=== PATIENT | female | born 1995 | race Caucasian/White ===

== ENCOUNTER 2020-01-16 13:16 | Emergency (ER) | payer OTHER, BC, SELFPAY ==
--- NOTE | ~2020-01-16 | XR_ITS ---
EXAMINATION: XR hand RT min 3V DATE: 01/16/2020 13:59 INDICATION: Right thumb injury. TECHNIQUE: 3 views of right hand were obtained. COMPARISON: None. FINDINGS: Bone alignment is normal. No fracture. Joint spaces are well maintained. IMPRESSION: 1. Normal right hand. Reviewed, dictated and finalized at location A. IMPRESSION: 1. Normal right hand.
[2020-01-16 13:44] VITALS: BP 108/66; PULSE 95; RESP 14; TEMP 36.6; O2SAT 99
--- NOTE | 2020-01-16 14:12 | ED.GENADULT ---
HPI - General Adult General Chief complaint: Extremity Injury, Upper Stated complaint: smashed thumb in card door Time Seen by Provider: 01/16/20 14:12 Source: patient and RN notes reviewed Mode of arrival: ambulatory Limitations: no limitations History of Present Illness HPI narrative: This is a 24 years old female presented to the office for evaluations of right thumb injury on Sunday. She accidentally jammed her right thumb into the car door. Complains of pain immediately and worse for the last couple day. Denies any other injury. She is right-hand dominant. Related Data Home Medications Medication Instructions Recorded Confirmed No Home Medications 01/16/20 01/16/20 Allergies Allergy/AdvReac Type Severity Reaction Status Date / Time No Known Allergies Allergy Verified 01/16/20 13:57 Review of Systems Review of Systems: Narrative: CONSTITUTIONAL: Denies fever or feeling ill CARDIOVASCULAR: Denies chest sore RESPIRATORY: Denies dyspnea GASTROINTESTINAL: Denies nausea, vomiting SKIN: Denies rash/lesions MUSCULOSKELETAL: Reports right thumb pain with dark color finger nail NEUROLOGIC: Denies numbness PMFSH Comments At time of signature, I agree with nursing past medical, surgical, social and family history. There is no relevant family history pertinent to the presenting complaint. Exam Narrative: Exam Narrative: GENERAL: This is a well-nourished, well-developed patient, in no apparent distress. NEURO: awake, alert, and oriented to person, place and time. There were no obvious focal neurologic abnormalities. Steady gait EXTREMITIES: Normal range of motion. Right thumb noted subungual hematoma. Rufus Coma Scale Eye Opening: Spontaneous 4 [place] Coma Scale Motor: Obeys Commands 6 Rufus Coma Scale Verbal: Oriented 5 Course Vital Signs Vital signs: Vital Signs Temperature 97.8 F 01/16/20 13:44 Pulse Rate 95 01/16/20 13:44 Respiratory Rate 14 01/16/20 13:44 Blood Pressure 108/66 01/16/20 13:44 Pulse Oximetry 99 01/16/20 13:44 Temperature 97.8 F 01/16/20 13:44 Pulse Rate 95 01/16/20 13:44 Respiratory Rate 14 01/16/20 13:44 Blood Pressure 108/66 01/16/20 13:44 Pulse Oximetry 99 01/16/20 13:44 Procedures Nail Trephination Nail Trephination #1: Nail Trephination Date: 01/16/20 Nail Trephination Time: 14:16 Time out: No Location (finger): right and thumb Sterile prep: betadine Method of drainage: needle and nail cautery Procedure successful: Yes Patient tolerated procedure: well Complications: pain Nail Trephination Comment: patient was screaming in pain during procedure; however she reports feeling better after I stopped squeezing her thumb. Wound care instruction provided. Medical Decision Making MDM Narrative Medical decision making narrative: Discharge instructions reviewed with patient, as well as provided in writing per nursing staff. The instructions also include specific and strict return/GO TO THE ER as well as f/u information. All questions have been answered, and the patient deny any further questions with discharge and discharge plan. Differential Diagnosis Differential Diagnosis: finger fracture Vital Signs Vital Signs: Vital Signs Temperature 97.8 F 01/16/20 13:44 Pulse Rate 95 01/16/20 13:44 Respiratory Rate 14 01/16/20 13:44 Blood Pressure 108/66 01/16/20 13:44 Pulse Oximetry 99 01/16/20 13:44 Temperature 97.8 F 01/16/20 13:44 Pulse Rate 95 01/16/20 13:44 Respiratory Rate 14 01/16/20 13:44 Blood Pressure 108/66 01/16/20 13:44 Pulse Oximetry 99 01/16/20 13:44 Imaging Data Attestation: I personally reviewed and interpreted this imaging study as follows: Radiologist's impression: EXAMINATION: XR hand RT min 3V DATE: 01/16/2020 13:59 INDICATION: Right thumb injury. TECHNIQUE: 3 views of right hand were obtained. COMPARISO
== END 2020-01-16 14:38 | disposition home or self-care (01) ==
PROVIDERS: Emergency Provider Nurse Practitioner
DX: S60.10XA Contusion of unspecified finger with damage to nail, initial encounter (principal); W23.1XXA Caught, crushed, jammed, or pinched between stationary objects, initial encounter
CPT/HCPCS: 11740; 73130; 99203; G0463

== ENCOUNTER 2020-01-18 15:16 | Emergency (ER) | payer OTHER, BC, SELFPAY ==
[2020-01-18 15:22] VITALS: BP 111/64; PULSE 110; RESP 14; TEMP 37.1; O2SAT 99
--- NOTE | 2020-01-18 15:38 | ED.GENADULT ---
HPI - General Adult General Chief complaint: Upper Respiratory Infection Stated complaint: ears throat and headache Source: patient and RN notes reviewed Mode of arrival: ambulatory Limitations: no limitations History of Present Illness HPI narrative: 24-year-old female presents with complaints of sore throat, intermittent chills and right ear pressure for 1 day. No treatment. No high fevers, drooling, neck or throat swelling. Pain is bilateral. Hurts to swallow. Exacerbation factors consist of eating and drinking. No rhinorrhea or nasal congestion. No voice change. Denies dyspnea, difficulty swallowing, jaw pain, dental pain, facial pain, foreign body sensation, and rash. Remains active. Caryn denies being , LMP 12/28/19. The patient reports she have not been diagnosed with COVID-19. The patient reports she is not waiting for the results of a COVID-19 lab test. The patient reports she do not have fever, weakness, fatigue, myalgia, or facial swelling. The patient reports she do not have a new or worsening cough or shortness of breath. Denies chest pain. The patient reports she do not have any rhinorrhea, congestion, nausea, vomiting, abdominal pain, and diarrhea. Tolerating po intake well. Denies recent traveling. Denies concerns for COVID-19 or exposures been home since [id number] order except for essential household needs and return home. At this time, patient is not suspected of having COVID-19. Some parts of this dictation were generated by voice recognition software and may contain typographical and/or grammatical inaccuracies. Related Data Allergies Allergy/AdvReac Type Severity Reaction Status Date / Time No Known Allergies Allergy Verified 01/18/20 15:30 Review of Systems Review of Systems: Narrative: CONSTITUTIONAL: Denies fever, sweats. Complains of intermittent chills. EYES: Denies visual changes, redness, discharge. ENT: Denies rhinorrhea, congestion, otalgia. Complains of sore throat, intermittent RT ear pressure . CARDIOVASCULAR: Denies chest pain, palpitations, edema. RESPIRATORY: Denies dyspnea, wheezing, cough. GASTROINTESTINAL: Denies abdominal pain, nausea, vomiting, diarrhea. GENITOURINARY: Denies dysuria, hematuria, abnormal discharge. SKIN: Denies rash or itching. MUSCULOSKELETAL: Denies acute back pain, joint pain, or myalgia. NEUROLOGIC: Denies numbness or focal weakness. PSYCHIATRIC: Denies anxiety or depression. All systems reviewed & are unremarkable except as noted in HPI and below. [facility] Past Medical History Medical History (Updated 01/18/20 @ 15:41 by YIMI San) Anxiety Depression Elbow fracture, left Surgical History Surgical History (Updated 01/18/20 @ 18:35 by YIMI San) History of dental surgery Family History Family History (Updated 01/18/20 @ 18:37 by YIMI San) Father Alive and well Mother Alive and well Grandparent Heart disease Grandparent Hypertension Heart disease Sibling Asthma Social History Social History (Updated 01/18/20 @ 18:39 by YIMI San) Smoking status: Former smoker Tobacco type: cigarettes Second hand tobacco smoke exposure: No Smoking end date: 08/13/17 Additional smoking assessment comments: Smoked for 1.5 years Alcohol intake: current Substance use: current Substance use type: marijuana Living arrangements: with family Occupation/Education: occupation Gender identity (if verbalized by the patient): Female Comments At time of signature, agree with nurse past medical, surgical, social, and family history. There is no relevant family history pertinent to the presenting complaint. Exam Narrative: Exam Narrative: GENERAL: This is a well-nourished, well-developed patient, in no apparent distress. Speaks in full sentences without deficits and ambulates with steady gait without dyspnea. HEAD: normocephalic, atraumatic. EYES:
== END 2020-01-18 16:01 | disposition home or self-care (01) ==
PROVIDERS: Emergency Provider Nurse Practitioner Family
DX: J02.0 Streptococcal pharyngitis (principal); F17.210 Nicotine dependence, cigarettes, uncomplicated
CPT/HCPCS: 87804; 87880; 99213; G0463

== ENCOUNTER 2020-07-17 13:21 | Emergency (ER) | payer OTHER, SELFPAY ==
[2020-07-17 13:25] VITALS: BP 107/75; PULSE 105; RESP 18; TEMP 36.8; O2SAT 99
--- NOTE | 2020-07-17 13:45 | ED.URI ---
HPI - URI/Sore Throat General Chief Complaint: Upper Respiratory Infection Stated Complaint: sore throat Time Seen by Provider: 07/17/20 13:45 Source: patient Mode of arrival: ambulatory Limitations: no limitations History of Present Illness HPI Narrative: Caryn Lopez is a 25 yo with PMH of pre=-eclempsia, who comes to express care complaining of severe soreness of throat and difficulty swallowing that has worsened over the last 7 days. She states that today she cannot really swallow of fluids. An upper respiratory infection about 3 weeks ago had a negative Covid test 2 weeks ago, she is also 7 weeks Related Data Allergies Allergy/AdvReac Type Severity Reaction Status Date / Time No Known Allergies Allergy Verified 07/17/20 13:42 Review of Systems Review of Systems: Narrative: CONSTITUTIONAL: Denies fever, chills, sweats. EYES: Denies visual changes, redness, discharge. ENT: Denies rhinorrhea, no congestion, has sore throat, no otalgia. CARDIOVASCULAR: Denies chest pain, palpitations, edema. RESPIRATORY: Denies dyspnea, wheezing, cough GASTROINTESTINAL: Denies abdominal pain, nausea, vomiting, diarrhea. GENITOURINARY: Denies dysuria, hematuria, abnormal discharge SKIN: Denies rash or itching. NEUROLOGIC: Denies numbness, or focal weakness. PSYCHIATRIC: Denies anxiety or depression. [facility] Past Medical History Medical History Anxiety Depression Elbow fracture, left Surgical History Surgical History History of dental surgery Family History Family History Father Alive and well Mother Alive and well Grandparent Heart disease Grandparent Hypertension Heart disease Sibling Asthma Social History Social History (Updated 07/17/20 @ 13:48 by Ashlyn Smith CNP) Smoking status: Former smoker Tobacco type: cigarettes Second hand tobacco smoke exposure: No Smoking end date: 08/13/17 Additional smoking assessment comments: Smoked for 1.5 years Alcohol intake: former Substance use: former Substance use type: marijuana Gender identity (if verbalized by the patient): Female Comments At time of signature, I agree with nursing past medical, surgical, social and family history. There is no relevant family history pertinent to the presenting complaint. Exam Narrative: Exam Narrative: GENERAL: This is a well-nourished, well-developed patient, in mild distress. HEAD: normocephalic, atraumatic. EYES: PERRL. Sclera clear/white. Vision is grossly intact. EARS: External ears normal, auditory canals clear and without drainage, TMs normal without perforation. Hearing grossly intact. NOSE: External nose normal without nasal discharge, nares without redness, no rhinorrhea. THROAT: Mucous membranes moist, posterior pharynx erythema with bilateral 2+ tonsillar edema NECK: Neck supple, non-tender CARDIOVASCULAR: Tachycardic rate and rhythm without murmurs, gallops, or rubs. RESPIRATORY: Clear to auscultation. Breath sounds equal bilaterally. No wheezes, rales, or rhonchi. GASTROINTESTINAL: Abdomen soft, non-tender, SKIN: warm, intact with no suspicious lesions or rash, good texture and turgor. NEURO: awake, alert, and oriented to person, place and time. There were no obvious focal neurologic abnormalities. Steady gait EXTREMITIES: Normal range of motion. BACK: Nontender without deformity Course Course Emergency Course: Came to [facility] with sore throat Flu test and strep test run-positive for strep negative for flu Started on prednisone p.o. x4 days and penicillin V 500 mg 3 times daily x10 days Follow-up with primary care physician Vital Signs Vital signs: Vital Signs Temperature 98.2 F 07/17/20 13:25 Pulse Rate 105 H 07/17/20 13:25 Respiratory Rate 18 07/17/20 13:25 Blood Pressure 107/75
== END 2020-07-17 13:55 | disposition home or self-care (01) ==
PROVIDERS: Emergency Provider Nurse Practitioner
DX: O99.511 Diseases of the respiratory system complicating pregnancy, first trimester (principal); Z3A.01 Less than 8 weeks gestation of pregnancy; J02.0 Streptococcal pharyngitis; Z87.891 Personal history of nicotine dependence
CPT/HCPCS: 87804; 87880; 99213; G0463

== ENCOUNTER → 2020-08-11 12:46 | Outpatient (CLI) | payer OTHER, SELFPAY ==
--- NOTE | ~2020-08-11 | XR_ITS ---
XR chest 2V DATE: 08/11/2020 13:32 INDICATION: Mild exposure TECHNIQUE: PA and lateral views COMPARISON: None FINDINGS: Normal heart size. No hilar or mediastinal enlargement. No pulmonary infiltrate or consolid ation, pleural effusion or pulmonary vascular congestion or pneumothorax. Included skeletal structure s are unremarkable. IMPRESSION: Negative Reviewed, dictated and finalized at location A. [employer]ER IMPRESSION: Negative
== END ==
PROVIDERS: PCP Emergency Medicine; Visit Provider Emergency Medicine
DX: Z77.120 Contact with and (suspected) exposure to mold (toxic) (principal)
CPT/HCPCS: 71046

== ENCOUNTER 2021-01-20 12:57 | Emergency (ER) | payer OTHER, SELFPAY ==
--- NOTE | 2021-01-20 13:02 | ED.URI ---
HPI - URI/Sore Throat General Chief Complaint: Ear Stated Complaint: ear congestion and fatigued Time Seen by Provider: 01/20/21 13:02 Source: patient and RN notes reviewed History of Present Illness HPI Narrative: Patient is a 25-year-old female who presents the urgent care with complaints of bilateral ear pain. Patient states that she has had a cold since Sunday but has felt better over the last 24 hours however the ear pain has been consistent. Patient states that she has been taking DayQuil with some mild improvements of symptoms. Currently denies of any known fevers, nausea, vomiting, known exposure to Covid, strep or influenza. No other acute complaints. No acute distress noted. Patient aware of the plan of care. Some parts of this dictation were generated by voice recognition software and may contain typographical and/or grammatical inaccuracies. Related Data Home Medications Medication Instructions Recorded Confirmed No Home Medications 01/20/21 01/20/21 Allergies Allergy/AdvReac Type Severity Reaction Status Date / Time No Known Allergies Allergy Verified 01/20/21 13:06 Review of Systems Review of Systems: Narrative: CONSTITUTIONAL: Denies fever, chills, or sweats. EYES: Denies visual changes, redness, or discharge. ENT: Reports of bilateral otalgia CARDIOVASCULAR: Denies chest pain, palpitations, or edema. RESPIRATORY: Denies cough or dyspnea. GASTROINTESTINAL: Denies abdominal pain, nausea, vomiting, or diarrhea. GENITOURINARY: Denies dysuria or hematuria. SKIN: Denies rash or itching. MUSCULOSKELETAL: Denies back pain, joint pain, or myalgia. NEUROLOGIC: Denies headache, numbness, or weakness. All other systems reviewed are negative, except as documented in HPI. [facility] Past Medical History Medical History Anxiety Depression Elbow fracture, left Surgical History Surgical History History of dental surgery Family History Family History Father Alive and well Mother Alive and well Grandparent Heart disease Grandparent Hypertension Heart disease Sibling Asthma Social History Social History Smoking status: Former smoker Tobacco type: cigarettes Second hand tobacco smoke exposure: No Smoking end date: 08/13/17 Additional smoking assessment comments: Smoked for 1.5 years Alcohol intake: former Substance use: former Substance use type: marijuana Gender identity (if verbalized by the patient): Female Comments At the time of my signature, I reviewed and agree with the nursing past medical, surgical, social, and family history. There is no relevant family history pertinent to the patient complaint. Exam Narrative: Exam Narrative: GENERAL: This is a well-nourished, well-developed patient, in no apparent distress. HEAD: normocephalic, atraumatic. EYES: PERRL. Sclera clear/white. Vision is grossly intact. EARS: External ears normal, auditory canals clear and without drainage, mild fluid noted behind left TM without otitis. TMs normal without perforation. Hearing grossly intact. NOSE: External nose normal with no obvious nasal discharge, nares without redness, no rhinorrhea. THROAT: Mucous membranes moist, moderate erythema noted posterior oropharynx with mild bilateral tonsillar erythema without exudate or ulceration.(Patient reports that her tonsils are always large and she needs to have been removed, she is followed up with ENT) NECK: Neck supple, non-tender without lymphadenopathy CARDIOVASCULAR: Regular rate and rhythm without murmurs, gallops, or rubs. RESPIRATORY: Clear to auscultation. Breath sounds equal bilaterally. No wheezes, rales, or rhonchi. SKIN: warm, intact with no suspicious lesions or rash, good texture and turgor. NEURO: awake, alert, and
[2021-01-20 13:06] VITALS: BP 130/72; PULSE 98; RESP 14; TEMP 36.9; O2SAT 98
== END 2021-01-20 13:48 | disposition home or self-care (01) ==
PROVIDERS: Emergency Provider Nurse Practitioner Family; PCP Emergency Medicine
DX: J06.9 Acute upper respiratory infection, unspecified (principal); Z87.891 Personal history of nicotine dependence
CPT/HCPCS: 87081; 87880; 99213; G0463

== ENCOUNTER 2022-05-02 09:22 | Outpatient (CLI) | payer OTHER, SELFPAY | END 2022-05-02 09:23 | disposition home or self-care (01) | LOC: ANHSURGERY 09:32 | PROVIDERS: PCP Family Medicine; Visit Provider Obstetrics & Gynecology | DX: Z01.812 Encounter for preprocedural laboratory examination (principal); R10.2 Pelvic and perineal pain | CPT/HCPCS: 36415; 86850; 86900; 86901 ==

== ENCOUNTER 2022-05-05 00:37 | Day surgery (SDC) | payer OTHER, SELFPAY ==
[2022-04-27 14:24] VITALS: BMI 31.6
--- NOTE | 2022-04-27 14:31 | SUR.PREOP ---
Report to the Outpatient Waiting Room, entrance under the green pavilion located off [facility], at time 0600 on date 05/05/22. OR Time: 0730. Time changes happen often and if your time is changed the preop area will call you the afternoon before. - You and your visitor will be asked to self-screen and do not enter if you have any COVID symptoms. - Only one visitor and NO children visitors are allowed at this time. - The patient visitor is requested to leave or wait in car when not with patient due to restrictions. - A mask is required within the hospital. Patients may have clear liquids (water, carbonated beverages, clear teas, apple juice) until 3 hours prior to surgery with a maximum of 20 ounces. - No food from midnight until time of surgery NOTHING TO EAT OR DRINK AFTER MIDNIGHT - Infants may have breast milk until 4 hours before surgery, infant formula 6 hours prior to surgery. - Children will be allowed to drink immediately following surgery. If applicable, please bring a bottle or sippy cup to assist with drinking. Juice, water, soda, and popsicles are readily available. For infants on formula, please bring formula the day of surgery. Pacifiers are allowed. Take the following medications with a SIP of water the morning of surgery: NO MORNING MEDS Medications to discontinue per physician __HOLD VITAMINS AND SUPPLEMENTS FOR 3 DAYS____ Date to take last dose Please no make-up, nail gabonese, hairspray, perfume, deodorant, or body powder the day of surgery. No jewelry (including any body piercings) or valuables the day of surgery, leave them at home. Please take a shower or bath the night before, or the morning of, surgery with an antibacterial soap. Wear comfortable, loose fitting clothing. Children are encouraged to wear pajamas. - Jewelry must be removed prior to entering the operating room. Rings and piercings that are not removed may be cut off. - The hospital will not accept responsibility for valuables. - Please leave all valuables, including medications, at home the day of surgery. If you are going home after surgery, a licensed otr truck driver must drive you home. - NO public transportation without another adult. - We recommend that an adult stay with you for 24 hours following discharge. - We also recommend that you do not drive, make important decision, drink alcoholic beverages, or take any drugs that were not prescribed by your health care provider for at least 24 hours after your discharge time. For Pediatric surgeries, we recommend two adults accompany the child home (only one inside the building at this time). Follow any additional instructions given to you from your surgeon. If you or anyone in your household have experienced Covid symptoms in the past week, please notify your surgeon or the nurse liaison at the phone number below for possible testing. Telephone instructions given to _PATIENT__and asked if any additional questions and then verbalized understanding. Patient advised to call surgeon office or pre surgery nurse liaison [phone] if any additional questions.
--- NOTE | 2022-05-03 12:03 | PM.IMHP ---
H&P: HPI History of Present Illness Date/Time: 05/03/22 12:03 Chief Complaint: Pelvic pain Narrative: 27-year-old man in for diagnostic laparoscopy secondary to pelvic pain. Risks and benefits was aspiration bleeding, transfusion 3 bottles bladder ureters, or other internal received the [employer] handout entitled laparoscopy. She had all questions answered. She asked to proceed PMFSH Past Medical History Medical History Anxiety Depression Elbow fracture, left Surgical History Surgical History History of dental surgery Family History Family History Father Alive and well Mother Alive and well Grandparent Heart disease Grandparent Hypertension Heart disease Sibling Asthma Social History Social History Smoking status: Never smoker Tobacco type: cigarettes Second hand tobacco smoke exposure: No Smoking end date: 08/13/17 Additional smoking assessment comments: Smoked for 1.5 years Alcohol intake: current Alcohol use details: 2 DRINKS PER MONTH Substance use: former Substance use type: marijuana Gender identity (if verbalized by the patient): Female Spiritual care concerns: No Meds Home Medications and Allergies Home Medications Medication Instructions Recorded Confirmed Type multivitamin 1 tablet PO DAILY 04/27/22 04/27/22 History Allergies Allergy/AdvReac Type Severity Reaction Status Date / Time No Known Allergies Allergy Verified 01/20/21 13:06 Exam Const: General: cooperative, healthy appearing and comfortable Nutritional Appearance: average body habitus Orientation/consciousness: oriented to person, oriented to place and oriented to time Resp: Effort & Inspection: normal respiratory effort Cardio: Rate: regular rate Rhythm: regular rhythm Heart sounds: S1 normal heart sound present and S2 normal heart sound present GI: Inspection: normal to inspection : External Female Exam: normal external appearance Speculum Exam - Vagina: normal appearance of the vagina Speculum Exam - Cervix: normal appearance of the cervix Bimanual exam- vagina & uterus: uterine size normal and Uterine tenderness Bimanual Exam- Adnexa, other: tender Assessment and Plan Assessment and plan (1) Pelvic pain: Code(s): R10.2 - Pelvic and perineal pain Status: Acute Plan diagnostic laparoscopy
[2022-05-05] VITALS (11 sets, daily range): BP systolic 107–117; BP diastolic 58–81; PULSE 69–95; RESP 14–18; TEMP 36.3–36.6; O2SAT 95–100
--- NOTE | 2022-05-05 06:15 | WPDHPUPDATE1 ---
History and Physical Update Update Date/Time: 05/05/22 06:15 History and Physical has been reviewed, including an updated exam of the patient. There are NO changes in the patient's condition. Risks, benefits, and alternatives have been discussed and questions answered. Patient agrees to proceed with procedure.
[2022-05-05] MEDS: ACETAMINOPHEN 500 MG TABLET 1000 MG PO (06:33)
[2022-05-05] MEDS: KETOROLAC 15 MG/ML VIAL (*BKC) IV PUSH (06:34)
[2022-05-05] MEDS: LACTATED RINGERS 1,000 ML 30 ML IV CONT ×2 (06:34→08:15)
--- NOTE | 2022-05-05 06:56 | WPDANESEPPF ---
Anes - Initial Pre Proc Eval Procedure: Operation Date: 05/05/22 07:30 Proposed Procedures p Diagnostic Laparoscopy - Ian Singh MD Date/Time: 05/05/22 06:56 Surgeon: Ian Singh MD Pre Op Diagnosis: Pelvic Pain Patient Data Age: 27 Gender: F Height: 1.63 m Weight: 83.46 kg Allergies Allergy/AdvReac Type Severity Reaction Status Date / Time No Known Allergies Allergy Verified 01/20/21 13:06 Home Medications Medication Instructions Recorded Confirmed Type multivitamin 1 tablet PO DAILY 04/27/22 04/27/22 History escitalopram oxalate 5 mg tablet 5 mg PO DAILY 05/05/22 05/05/22 History hydrocodone 5 mg-acetaminophen 325 1 tablet PO Q4H PRN pain #30 tabs 05/05/22 Rx mg tablet lorazepam 0.5 mg tablet 0.5 mg PO DAILY PRN Anxiety 05/05/22 05/05/22 History Patient hx anesthesia problems: none Family hx anesthesia problems: none Results Review: All pre-operative results and documents have been reviewed as part of the pre-operative evaluation. [facility] Past Medical History Medical History Anxiety Depression Elbow fracture, left Surgical History Surgical History History of dental surgery Family History Family History Father Alive and well Mother Alive and well Grandparent Heart disease Grandparent Hypertension Heart disease Sibling Asthma Social History Social History Smoking status: Never smoker Tobacco type: cigarettes Second hand tobacco smoke exposure: No Smoking end date: 08/13/17 Additional smoking assessment comments: Smoked for 1.5 years Alcohol intake: current Alcohol use details: 2 DRINKS PER MONTH Substance use: former Substance use type: marijuana Living arrangements: alone Gender identity (if verbalized by the patient): Female Spiritual care concerns: No Anes - Eval Final PreProcedure Day of Procedure 05/05/22 06:56 Patient weight: obese Heart: regular rate and rhythm Lungs: clear to auscultation and normal air movement Airway: Mallampati scale class II Neurological: alert and oriented Last oral intake: >/= 8 hours ASA classification: II Emergent: no Anesthetic plan: proceed Anesthesia type and monitoring: general ETT Results Review: All pre-operative results and documents have been reviewed as part of the pre-operative evaluation. Informed Consent: The patient's anesthetic plan and its attendant risks and benefits were discussed with the patient/family/POA. Questions were solicited and answers provided to the satisfaction of the patient/family/POA.
--- NOTE | 2022-05-05 08:08 | P.OP_ITS ---
Procedure Note - Detailed Date of Procedure 05/05/22 Pre-op Diagnosis Pelvic Pain Post-op Diagnosis Other (Endometriosis and right ovarian cyst) Procedure Performed laparoscopy with destruction of endometriosis and right ovarian cyst Surgeon Ian Singh MD Anesthesia General Indications this is a 27-year-old female with pelvic pain and dyspareunia Findings normal-appearing uterus. Normal-appearing tubes bilaterally. Right ovarian cyst was benign in nature. Endometriosis and the cul-de-sac Description of Procedure patient was prepped and draped in the normal sterile fashion placed in the dorsal lithotomy position. Under excellent general trach anesthesia weighted speculum placed posterior vagina. Anterior lip of the cervix grasped with single-tooth tenaculum. Alba's cannula inserted the cervix attached to the single-tooth to be used later for uterine manipulation. The bladder was emptied of clear urine and a weighted speculum was removed. Gloves were changed An infraumbilical incision made the Veress needle passed in the abdomen. Abdomen filled with CO2 gas [id number]. 5Mm trocar advanced in the abdomen downside visualized no injury seen. Gas reattached patient placed in [facility] and a suprapubic incision made. The 5mm trocar advanced under direct visualization assuring no injury. The above findings were seen normal-appearing appendix liver edge gallbladder were noted uterus was normal in size a simple simple right ovarian cyst was seen and a an area of powder burn endometriosis on the right uterosacral ligament. The endometriosis growth was destroyed with mo nopolar cautery at 35 w per 2nd. Irrigation undertaken to clear. Photo documentation was undertaken the lower sites removed. The gas removed from the abdomen. The upper site removed and the incisions closed with 4 Monocryl and glue. The instruments removed from vagina and the patient was awakened. Patient went to recovery in satisfactory condition. All sponge, needle, instrument counts were correct. There were no immediate complications Estimated Blood Loss 5 Drains No Packing No Pathology None sent Complications No immediate complications Condition Stable Disposition PACU
[2022-05-05] MEDS: fentaNYL CITRATE INJ (*CRX) 100 MCG/2 ML VIAL 25 MCG IV PUSH (08:43)
[2022-05-05] MEDS: oxyCODONE HCL (*CRX) 5 MG TAB IR PO (09:31)
== END 2022-05-05 10:20 | disposition home or self-care (01) ==
PROVIDERS: PCP Family Medicine; Visit Provider Obstetrics & Gynecology
PROC: (CPT 49320; principal; 2022-05-05 07:30)
DX: R10.2 Pelvic and perineal pain (principal); N80.3 Endometriosis of pelvic peritoneum; N83.201 Unspecified ovarian cyst, right side; N94.10 Unspecified dyspareunia; Z87.891 Personal history of nicotine dependence; E66.9 Obesity, unspecified; Z68.31 Body mass index [BMI] 31.0-31.9, adult
CPT/HCPCS: 58662; 36415; 86850; 86900; 86901; A9270; J0330; J1100; J1885; J2250; J2405; J3010; J7030; J7120

== ENCOUNTER 2022-07-31 09:33 | Emergency (ER) | payer OTHER, SELFPAY ==
--- NOTE | ~2022-07-31 | XR_ITS ---
Left Forearm AP and lateral views of the left forearm were performed. Clinical History: Status post fall Findings: No fracture or dislocation is seen. Osseous alignment in anatomic. Joint spaces are prese rved. Soft tissues are unremarkable. Impression: Unremarkable exam. Reviewed, dictated and finalized at location [] [employer] Impression: Unremarkable exam.
[2022-07-31 09:42] VITALS: BP 129/75; PULSE 95; RESP 20; TEMP 37.2; O2SAT 99
--- NOTE | 2022-07-31 10:06 | ED.FALL ---
HPI - Fall General Chief Complaint: Fall Stated Complaint: left arm and knee injury Time Seen by Provider: 07/31/22 10:00 Source: patient, RN notes reviewed and old records reviewed Mode of arrival: ambulatory Limitations: no limitations History of Present Illness HPI Narrative: 27-year-old female presents to [facility] with complaints of fall this morning when she tripped where she fell forward onto her left forearm and left knee,patient also has small abrasion to palm right hand and right great toe.Patient is tearful with her discomfort of her left forearm and elbow region. Patient denies any acute pain of her left knee has full mobility and denies any pain to left knee region on palpation minimal swelling noted to anterior left knee complaint: fall Onset (ago): hour(s) (This morning) Fall from: standing Place fall occurred: other Loss of consciousness: none Symptoms prior to fall: none Severity scale (1-10): 4 Associated symptoms (after fall): other (pain left forearm) Related Data Home Medications Medication Instructions Recorded Confirmed levonorgestrel 20 mcg/24 hours (8 1 device intrauterine ONCE 07/31/22 07/31/22 yrs) 52 mg intrauterine device (Mirena) Allergies Allergy/AdvReac Type Severity Reaction Status Date / Time No Known Allergies Allergy Verified 07/31/22 09:53 Review of Systems Review of Systems: CONSTITUTIONAL: Denies fever, chills, or sweats. EYES: Denies visual changes, redness, or discharge. ENT: Denies rhinorrhea, congestion, sore throat, or otalgia. CARDIOVASCULAR: Denies chest pain, palpitations, or edema. RESPIRATORY: Denies cough or dyspnea. GASTROINTESTINAL: Denies abdominal pain, nausea, vomiting, or diarrhea. GENITOURINARY: Denies dysuria or hematuria. SKIN: Denies rash or itching. abrasion to right palm and right great toe without bleeding noted. MUSCULOSKELETAL: Denies back pain, positive for pain to left forearm and elbow joint area, or myalgia. NEUROLOGIC: Denies headache, numbness, or weakness. PSYCHIATRIC: positive history of anxiety or depression. All systems reviewed & are unremarkable except as noted in HPI and below PMFSH Past Medical History Medical History Anxiety Depression Elbow fracture, left Surgical History Surgical History History of dental surgery Family History Family History Father Alive and well Mother Alive and well Grandparent Heart disease Grandparent Hypertension Heart disease Sibling Asthma Social History Social History (Updated 08/09/22 @ 10:05 by Yajaira Chavira NP) Smoking status: Former smoker Tobacco type: cigarettes Second hand tobacco smoke exposure: No Smoking end date: 08/13/17 Additional smoking assessment comments: Smoked for 1.5 years Alcohol intake: current Alcohol use details: 2 DRINKS PER MONTH Substance use: former Substance use type: marijuana Gender identity (if verbalized by the patient): Female Spiritual care concerns: No Comments At time of signature, agree with nursing past medical, surgical, social and family history. There is no relevant family history pertinent to the presenting complaint Exam Narrative: GENERAL: Well-appearing, well-nourished, and in no acute distress. HEAD: Normocephalic, atraumatic. EYES: PERRLA and EOMI. ENT: Nares clear, no rhinorrhea or epistaxis. Mucous membranes moist. NECK: Supple.no lymphadenopathy CHEST: Clear to auscultation. No respiratory distress. HEART: Regular rate and rhythm. No murmur heard. Normal peripheral pulses. ABDOMEN: Soft, nontender, nondistended, normal active bowel sounds. EXTREMITIES: Normal range of motion. mild swelling noted to anterior left knee with no pain on palpation, full ROM noted with patient able to tolerate full weight bearing to left leg, p
== END 2022-07-31 10:30 | disposition home or self-care (01) ==
PROVIDERS: Emergency Provider Registered Nurse
DX: S50.12XA Contusion of left forearm, initial encounter (principal); W01.0XXA Fall on same level from slipping, tripping and stumbling without subsequent striking against object, initial encounter; Z87.891 Personal history of nicotine dependence
CPT/HCPCS: 73090; 99213; G0463

== ENCOUNTER 2022-12-11 12:44 | Emergency (ER) | payer BC, SELFPAY ==
--- NOTE | 2022-12-11 12:52 | ED.URI ---
HPI - URI/Sore Throat General Chief Complaint: Upper Respiratory Infection Stated Complaint: Sore Throat Time Seen by Provider: 12/11/22 12:52 Source: patient and RN notes reviewed History of Present Illness HPI Narrative: Patient is a 27-year-old female who presents to urgent care with complaints of a sore throat that started Sunday. Denies any fever, nausea or vomiting. States that she has had positive exposures at work. Patient has been taking ibuprofen. No other acute complaints. No acute distress noted. Patient aware of the plan of care. Some parts of this dictation were generated by voice recognition software and may contain typographical and/or grammatical inaccuracies. Related Data Home Medications Medication Instructions Recorded Confirmed No Home Medications 12/11/22 12/11/22 Allergies Allergy/AdvReac Type Severity Reaction Status Date / Time No Known Allergies Allergy Verified 12/11/22 13:26 Review of Systems Review of Systems: CONSTITUTIONAL: Denies fever, chills, or sweats. EYES: Denies visual changes, redness, or discharge. ENT: Denies rhinorrhea, congestion, otalgia. Reports of sore throat CARDIOVASCULAR: Denies chest pain, palpitations, or edema. RESPIRATORY: Denies cough or dyspnea. GASTROINTESTINAL: Denies abdominal pain, nausea, vomiting, or diarrhea. GENITOURINARY: Denies dysuria or hematuria. SKIN: Denies rash or itching. MUSCULOSKELETAL: Denies back pain, joint pain, or myalgia. NEUROLOGIC: Denies headache, numbness, or weakness. All other systems reviewed are negative, except as documented in HPI. [facility] Past Medical History Medical History Anxiety Depression Elbow fracture, left Surgical History Surgical History History of dental surgery Family History Family History Father Alive and well Mother Alive and well Grandparent Heart disease Grandparent Hypertension Heart disease Sibling Asthma Social History Social History (Updated 08/09/22 @ 10:05 by Yajaira Chavira NP) Smoking status: Former smoker Tobacco type: cigarettes Second hand tobacco smoke exposure: No Smoking end date: 08/13/17 Additional smoking assessment comments: Smoked for 1.5 years Alcohol intake: current Alcohol use details: 2 DRINKS PER MONTH Substance use: former Substance use type: marijuana Living arrangements: alone Occupation/Education: occupation Gender identity (if verbalized by the patient): Female Spiritual care concerns: No Comments At the time of my signature, I reviewed and agree with the nursing past medical, surgical, social, and family history. There is no relevant family history pertinent to the patient complaint. Exam Narrative: GENERAL: This is a well-nourished, well-developed patient, in no apparent distress. HEAD: normocephalic, atraumatic. EYES: PERRL. Sclera clear/white. Vision is grossly intact. EARS: External ears normal, auditory canals clear and without drainage, TMs normal without perforation. Hearing grossly intact. NOSE: External nose normal with no obvious nasal discharge, nares without redness, no rhinorrhea. THROAT: Mucous membranes moist, mild erythema noted to posterior oropharynx with moderate postnasal drainage NECK: Neck supple, non-tender without lymphadenopathy, masses or thyromegaly. CARDIOVASCULAR: Regular rate and rhythm RESPIRATORY: Clear to auscultation. Breath sounds equal bilaterally. No wheezes, rales, or rhonchi. SKIN: warm, intact with no suspicious lesions or rash, good texture and turgor. NEURO: awake, alert, and oriented to person, place and time. There were no obvious focal neurologic abnormalities. EXTREMITIES: No clubbing, cyanosis, or edema. Course Course Level of Care: Express Care Visit Vital Signs Vital signs:
[2022-12-11 12:58] VITALS: BP 115/72; PULSE 93; RESP 20; TEMP 36.7; O2SAT 100
== END 2022-12-11 13:48 | disposition home or self-care (01) ==
PROVIDERS: Emergency Provider Nurse Practitioner Family; PCP Family Medicine
DX: J02.9 Acute pharyngitis, unspecified (principal); Z87.891 Personal history of nicotine dependence
CPT/HCPCS: 87081; 87880; 99213; G0463

== ENCOUNTER 2023-07-11 10:48 | Outpatient (CLI) | payer BC, SELFPAY ==
--- NOTE | ~2023-07-11 | US_ITS ---
EXAMINATION: US OB <=14 wk fetus w TV DATE: 07/11/2023 11:48 INDICATION: Incomplete spontaneous Comparison:No prior studies for comparison. TECHNIQUE: Multiple transabdominal and endovaginal sonographic images of the pelvis performed. FINDINGS: The uterus measures 7.5 x 3.7 x 4.3 cm. The endometrial complex measures 9 mm. No intrauter ine is identified. The right ovary measures 3.4 x 1.5 x 3.2 cm and the left ovary measures 3 x 2.5 x 1.8 cm. There are small follicles in each ovary. Normal doppler signal in both ovaries. There is trace free fluid in the pelvis. There are no abnormal masses seen on either side. IMPRESSION: 1. No intrauterine identified. Unremarkable pelvic ultrasound. Please correlate with beta h CG levels and follow-up ultrasound as clinically warranted. Differential diagnosis includes failed pr egnancy, very early intrauterine and ectopic . Reviewed, dictated and finalized at location B. MESSENGER IMPRESSION: 1. No intrauterine identified. Unremarkable pelvic ultrasound. Please correlate with beta hCG levels and follow-up ultrasound as clinically warrante d. Differential diagnosis includes failed , very early intrauterine pr egnancy and ectopic .
== END 2023-07-11 10:49 ==
PROVIDERS: PCP Student in an Organized Health Care Education/Training Program; Visit Provider Student in an Organized Health Care Education/Training Program
DX: O03.4 Incomplete spontaneous abortion without complication (principal); Z3A.00 Weeks of gestation of pregnancy not specified
CPT/HCPCS: 76801; 76817

== ENCOUNTER 2023-07-26 01:00 | Day surgery (SDC) | payer BC, SELFPAY ==
[2023-07-24 15:04] VITALS: BMI 32.5
--- NOTE | 2023-07-24 15:08 | PC.NURSE ---
Report to the Outpatient Waiting Room, entrance under the green pavilion located off [facility], at time 0600 on date 07/26/23. Planned Procedure Time: 0730. Time changes happen often and if your time is changed the preop area will call you the afternoon before. - You and your visitor will be asked to self-screen and do not enter if you have any COVID symptoms. - A mask is optional within the hospital at this time. Patients may have clear liquids (water, carbonated beverages, clear teas, apple juice) until 3 hours prior to surgery with a maximum of 20 ounces. - No food from midnight until time of surgery Take the following medications with a SIP of water the morning of surgery: NONE DO NOT STOP ANY OF YOUR OTHER PRESCRIPTION MEDICATIONS PRIOR TO SURGERY ?EXCEPT THE FOLLOWING Medications to discontinue per physician: N/A Date to take last dose: N/A Please no make-up, nail german, hairspray, perfume, deodorant, or body powder the day of surgery. No jewelry (including any body piercings) or valuables the day of surgery, leave them at home. Please take a shower or bath the night before, or the morning of, surgery with an antibacterial soap. Wear comfortable, loose fitting clothing. - Jewelry must be removed prior to entering the operating room. Rings and piercings that are not removed may be cut off. - The hospital will not accept responsibility for valuables. - Please leave all valuables, including medications, at home the day of surgery. If you are going home after surgery, a licensed pile driver operator helper must drive you home. - NO public transportation without another adult if you receive anesthesia. - We recommend that an adult stay with you for 24 hours following discharge. - We also recommend that you do not drive, make important decision, drink alcoholic beverages, or take any drugs that were not prescribed by your health care provider for at least 24 hours after your discharge time. Follow any additional instructions given to you from your surgeon. If you or anyone in your household have experienced Covid symptoms in the past week, please notify your surgeon or the nurse liaison at the phone number below for possible testing. Telephone instructions given to PT - YOLANDA KUNZ and asked if any additional questions and then verbalized understanding. Patient advised to call surgeon office or pre surgery nurse liaison [phone] if any additional questions.
--- NOTE | 2023-07-25 15:49 | PM.IMHP ---
H&P: HPI History of Present Illness Date/Time: 07/25/23 15:49 Chief Complaint: incomplete Narrative: 28-year-old female who presents for suction D&C for incomplete . Patient initially had an unplanned at the end of May. Patient had an elective . Patient took medications that she received off line. Patient had heavy bleeding. Patient did not have return of spontaneous menses and had persistent positive urine test. Beta hCG has plateaued and not rising appropriately. Progesterone levels were low. Pelvic ultrasound showed no evidence of IUP. Review of Systems Review of Systems: All systems reviewed & are unremarkable except as noted in HPI and below PMFSH Past Medical History Medical History Amenorrhea Anxiety Cyst of ovary Depression Elbow fracture, left Endometriosis Surgical History Surgical History H/O laparoscopy ~05/04 History of dental surgery Family History Family History Father Alive and well Mother Alive and well Grandparent Heart disease Grandparent Hypertension Heart disease Sibling Asthma Social History Social History Smoking packs per day: 0.5 Smoking cigarettes per day: 10.0 Years smoked: 2 Smoking pack-years: 1.00 Smoking status: Former smoker Tobacco type: cigarettes Second hand tobacco smoke exposure: No Smoking end date: 08/13/18 Additional smoking assessment comments: Smoked for 1.5 years Alcohol intake: current Drinks per week: 4 Alcohol use details: 2 DRINKS PER MONTH Substance use: current Substance use type: marijuana Lack of Transportation: No Lack of Food: Never True Current Housing: I Have Housing Concerned About Future Housing: No Difficulty Paying Gas/Electric Bills: No Difficulty Paying for Meds: No Currently Unemployed: No Education: High School Diploma/GED Difficulty w/ Childcare or Family Care: No Living arrangements: with family Additional living arrangements comments: CHILD Occupation/Education: occupation Additional occupation/education comments: [employer] Gender identity (if verbalized by the patient): Female Sexual Orientation (if Verbalized by the Patient): Straight or Heterosexual Spiritual care concerns: No Meds Home Medications and Allergies Home Medications Medication Instructions Recorded Confirmed Type escitalopram oxalate 10 mg tablet 10 mg PO DAILY 07/06/23 07/24/23 History (Lexapro) escitalopram oxalate 5 mg tablet 5 mg PO DAILY 07/06/23 07/24/23 History (Lexapro) trazodone 100 mg tablet 100 mg PO QHS PRN Anxiety 07/06/23 07/24/23 History Allergies Allergy/AdvReac Type Severity Reaction Status Date / Time No Known Allergies Allergy Verified 07/24/23 15:03 Exam Const: General: cooperative and comfortable Resp: Effort & Inspection: normal respiratory effort and able to speak in complete sentences Cardio: Rate: regular rate Rhythm: regular rhythm GI: Inspection: normal to inspection GI Palp: No abdominal tenderness and Yes Soft to palpation : External Female Exam: normal external appearance Speculum Exam - Vagina: normal appearance of the vagina Speculum Exam - Cervix: Cervical os closed Bimanual exam- vagina & uterus: normal bimanual exam Assessment and Plan Assessment and plan (1) Incomplete : Code(s): O03.4 - Incomplete spontaneous without complication Status: Acute Assessment and Plan: 28-year-old female who presents for follow-up regarding incomplete Unplanned at the end of May s/p Mifepristone and Misoprostol pt had 2 days of bleeding and then it stopped UPT remained positive beta HCG levels are positiv
[2023-07-26 06:21] VITALS: BP 114/80; PULSE 97; RESP 18; TEMP 36.1; O2SAT 99
--- NOTE | 2023-07-26 06:24 | WPDANESEPPF ---
Anes - Initial Pre Proc Eval Procedure: Operation Date: 07/26/23 07:30 Proposed Procedures p Suction Dilation and Curettage - Lalo Childress MD Date/Time: 07/26/23 06:24 Surgeon: Lalo Childress MD Pre Op Diagnosis: Incomplete AB Patient Data Age: 28 Gender: F Height: 1.63 m Weight: 86.2 kg Allergies Allergy/AdvReac Type Severity Reaction Status Date / Time No Known Allergies Allergy Verified 07/26/23 06:24 Home Medications Medication Instructions Recorded Confirmed Type escitalopram oxalate 10 mg tablet 10 mg PO DAILY 07/06/23 07/26/23 History (Lexapro) escitalopram oxalate 5 mg tablet 5 mg PO DAILY 07/06/23 07/26/23 History (Lexapro) trazodone 100 mg tablet 100 mg PO QHS PRN Anxiety 07/06/23 07/26/23 History Patient hx anesthesia problems: none Family hx anesthesia problems: none Results Review: All pre-operative results and documents have been reviewed as part of the pre-operative evaluation. [facility] Past Medical History Medical History Amenorrhea Anxiety Cyst of ovary Depression Elbow fracture, left Endometriosis Surgical History Surgical History H/O laparoscopy ~05/04 History of dental surgery Family History Family History Father Alive and well Mother Alive and well Grandparent Heart disease Grandparent Hypertension Heart disease Sibling Asthma Social History Social History Smoking packs per day: 0.5 Smoking cigarettes per day: 10.0 Years smoked: 2 Smoking pack-years: 1.00 Smoking status: Former smoker Tobacco type: cigarettes Second hand tobacco smoke exposure: No Smoking end date: 08/13/18 Additional smoking assessment comments: Smoked for 1.5 years Alcohol intake: current Drinks per week: 4 Alcohol use details: 2 DRINKS PER MONTH Substance use: current Substance use type: marijuana Lack of Transportation: No Lack of Food: Never True Current Housing: I Have Housing Concerned About Future Housing: No Difficulty Paying Gas/Electric Bills: No Difficulty Paying for Meds: No Currently Unemployed: No Education: High School Diploma/GED Difficulty w/ Childcare or Family Care: No Living arrangements: with family Additional living arrangements comments: CHILD Occupation/Education: occupation Additional occupation/education comments: [employer] Gender identity (if verbalized by the patient): Female Sexual Orientation (if Verbalized by the Patient): Straight or Heterosexual Spiritual care concerns: No Anes - Eval Final PreProcedure Day of Procedure 07/26/23 06:24 Patient weight: overweight Heart: regular rate and rhythm Lungs: clear to auscultation Airway: Mallampati scale class II Neurological: alert and oriented Last oral intake: >/= 8 hours ASA classification: II Emergent: no Anesthetic plan: proceed Anesthesia type and monitoring: general GIVS and standard monitoring Results Review: All pre-operative results and documents have been reviewed as part of the pre-operative evaluation. Informed Consent: The patient's anesthetic plan and its attendant risks and benefits were discussed with the patient/family/POA. Questions were solicited and answers provided to the satisfaction of the patient/family/POA.
[2023-07-26] MEDS: LACTATED RINGERS 1,000 ML 30 ML IV CONT (06:40)
[2023-07-26] MEDS: DOXYCYCLINE 100 MG/NS 100 ML 100 MG/100 ML BAG IVPB (06:43)
[2023-07-26] MEDS: ONDANSETRON INJ 4 MG/2 ML VIAL IV PUSH (06:43)
[2023-07-26] MEDS: SCOPOLAMINE 1.5 MG PATCH TRANSDERM (06:43)
[2023-07-26] MEDS: ACETAMINOPHEN 500 MG TABLET 1000 MG PO (06:43)
[2023-07-26 06:50] LABS: Hemoglobin 12.7 g/dL (12.0-15.0)
--- NOTE | 2023-07-26 07:17 | WPDHPUPDATE1 ---
History and Physical Update Update Date/Time: 07/26/23 07:17 History and Physical has been reviewed, including an updated exam of the patient. There are NO changes in the patient's condition. Risks, benefits, and alternatives have been discussed and questions answered. Patient agrees to proceed with procedure.
[2023-07-26] MEDS: LIDOCAINE HCL 1% PF INJ 5 ML VIAL 10 ML INFILTRATE (07:45)
[2023-07-26] MEDS: KETOROLAC 15 MG/ML VIAL (*BKC) IV PUSH (07:52)
[2023-07-26 07:59] VITALS: BP 106/72; PULSE 73; RESP 13
[2023-07-26] MEDS: fentaNYL CITRATE INJ (*CRX) 100 MCG/2 ML VIAL 25 MCG IV PUSH ×2 (08:13→08:19)
[2023-07-26] MEDS: RHO(D) IMMUNE GLOBULIN 300 MCG/2 ML SYRINGE IM (08:14)
--- NOTE | 2023-07-26 08:29 | W.PM.PROC2 ---
Procedure Note - Detailed Date of Procedure 07/26/23 Pre-op Diagnosis Incomplete AB Post-op Diagnosis Same Procedure Performed Suction Dilation & curettage Surgeon Lalo Childress MD Anesthesia General Indications incomplete medical Findings intrauterine products of conception Description of Procedure The patient was taken to the operating room after a missed had been noted on on transvaginal ultrasound. The risks, benefits and alternatives of the procedure were reviewed with the patient and informed consent was obtained. The patient was taken to the OR and anesthesia was noted to be adequate. The patient was placed in the dorsolithotomy position. Pelvic exam was performed with findings noted above. The patient was prepped and draped in the usual sterile fashion. Sterile speculum was placed in the vagina and the cervix was grasped with a tenaculum. The cervix was dilated further to allow for passage of a 8 mm suction curette. The 8 mm suction curette was gently advanced to the fundus, suction was activated, and the tip was rotated while being withdrawn to clear the uterus of products. This suction process was repeated 3 additional times due to the quantity of material in the uterus. The sharp curette was introduced and advanced to the fundus to remove any remaining products. The suction curette was reintroduced one final time to ensure all products had been removed. The tenaculum was removed. Good hemostasis was noted. Instrument, sponge, and sharp counts were correct. Patient tolerated the procedure well and was taken to the recovery room in stable condition. Estimated Blood Loss 20 Urine Output 100 Drains No Packing No Pathology Yes (products of conception ) Complications No immediate complications Condition Stable Disposition Same day [facility] Billing Surgery - Charge Forward: Surgery Billing
[2023-07-26] MEDS: oxyCODONE HCL (*CRX) 5 MG TAB IR PO (08:43)
[2023-07-26 08:45] VITALS: BP 120/77; PULSE 68; RESP 20
[2023-07-26 09:15] VITALS: BP 93/50; PULSE 75; RESP 20
== END 2023-07-26 09:15 | disposition home or self-care (01) ==
PROVIDERS: PCP Family Medicine; Visit Provider Student in an Organized Health Care Education/Training Program
PROC: (CPT 59812; principal; 2023-07-26 07:30)
DX: O07.4 Failed attempted termination of pregnancy without complication (principal)
CPT/HCPCS: 59812; 36415; 85014; 85018; 85461; 86850; 86900; 86901; 88305; 90384; A9270; J1885; J2250; J2405; J2704; J2790; J3010; J7120

== ENCOUNTER 2024-12-21 20:08 | Observation (INO) | payer SELFPAY ==
[2024-12-21 20:16] VITALS: BP 136/68; PULSE 98
[2024-12-21 20:17] VITALS: BP 125/66; PULSE 99
--- OUTSIDE RECORDS SUMMARY | 2024-12-21 20:17 | XMS_ITS | Clinical Summary ---
Author Organization [email or web address] Address [address] [place] [address] Care Team Providers Care White Mixing Operator Name Role Phone Antoine Mathew MD Primary Care Provider [phone] Source Comments [facility],non-owned Affiliates and Associated Physician Practices is amultiple site organization consisting of ambulatory clinics and hospital sitesin [place], [place], [place] and [place]. This disclosure is being madepursuant to the Care Everywhere program and may not contain all information available regarding this patient. Last updated 18.[email or web address] Allergies No known active allergies Medications * Be aware that medications may not be up to date on this document. Alwaysverify current medications with the patient. ferrous sulfate 325 (65 FE) MG tablet Take 325 mg by mouth once daily 9 Active MV & Min w/FA-DHA ( ADULT GUMMY/DHA/FA PO) Take 1 Each by mouth daily. Active acetaminophen (TYLENOL) 500 MG tablet Take 500 mg by mouth every 4 hours as needed for Pain Maximum allowable Acetaminophen amount = 4 Grams (4000 mg) / 24 hours. Active erythromycin (Romycin) 5 MG/GM ophthalmic ointment Instill into left eye 6 times daily while awake Apply 1 cm ribbon in affected eye(s) up to 6 times daily while awake for 7-10 days 3.5 g 4 Active Additional Information Patient not taking.Reported on 07/07/2024 Active Problems Problem Noted Date Diagnosed Date Elevated blood pressure read ing in office without diagnosis of hypertension 05/21/2019 Overview (05/21/2019): Recent labs from 05/16/19: H/H/P: 10./.8/325 CMP: AST: 17, ALT: 7, creatinine: 0.56, BUN: 7 24 hour urine protein: 264mg Assessment & Plan (05/21/2019 7:41 PM CDT): One previously elevated B/p in OB office after 20 weeks. home blood pressure recordings 05/15: 144/81, 145/91 05/19: 144/83 Otherwise normotensive this past week. Recent labs from 05/16/19: H/H/P: 10./.8/325 CMP: AST: 17, ALT: 7, creatinine: 0.56, BUN: 7 24 hour urine: 264mg Last growth assessment 05/14: 51% 3101gm, 74% AC Plan: Weekly BPP with NST; completed yesterday with primary OB Weekly labs for CBC, CMP Delivery initiation at 39 weeks is supported, reports she is scheduled for this in 1 week Twice daily kick counts Continued home monitoring of blood pressure, report any blood pressure >150/95 Close surveillance for preeclampsia Sent to [facility] at [facility] today for persistent headache without relief and worsening scotomata Report called to triage at [facility], Adri MONROEmaterials scheduler murmur 05/19/2019 Assessment & Plan (05/21/2019 11:39 AM CDT): Pending evaluation with SIMONE, order placed per [facility] cardiology. Syncope 05/19/2019 Assessment & Plan (05/21/2019 11:27 AM CDT): Yolanda was seen by cardiology @ [facility] and notes reflect a benign exam. Flow murmur diagnosed. Sent with order for echo to screen for cardiomyopathy, prefers to do in [place]. Follow up @ [facility] cardiology 4 weeks. 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 Second antibody screen positive after receiving RhoGAM in the 1st trimester on 11/15/2018. In the second trimester, the antibody screen became negative prior to getting 27 week RhoGAM on 03/07/2019. Subsequent antibody screen on 04/17/2019 [3TM] was weekly positive for anti D. The most likely explanation for the anti-D antibody is the RhoGAM administration, which has been given twice in this (at two different obstetric offices). There was no suggestion of severe anemia by ultrasound today. No further evaluation/testing recommended by Maternal- Medicine for this issue. Assessment & Plan (05/14/2019 6:03 PM CDT): Initial antibody screen negative. Second antibody screen positive after receiving RhoGAM in the 1st trimester on 11/15/2018. In the second trimester, the antibody screen became negative prior to getting 27 week RhoGAM on 03/07/2019. Subsequent antibody screen on 04/17/2019 [3TM] was weekly positive for anti D. The most likely explanation for the anti-D antibody is the RhoGAM administration, which has been given twice in this (at two different obstetric offices). There was no suggestion of severe anemia by ultrasound today. No further evaluation/testing recommended by Maternal- Medicine for this issue. Supervision of high-risk of young prim igravida 05/06/2019 Anemia affecting first 05/06/2019 Orthostatic hypotension 05/06/2019 Immunizations Immunization Administration Dates Next Due INFLUENZA VACCINE, QUADR. (F LUZONE; FLULAVAL; FLUARIX; AFLURIA QUADRIVALENT; 6MO+), 0.5 ML (IIV4) 05/16/2019 Family History Medical History Relation Name Comments Brain Tumor Cousin CAD (Coronary Artery Disease) Maternal Grandmother Brain Tumor Other Paternal great uncle CAD (Coronary Artery Disease) Paternal Grandfather Hypertension Paternal Grandfather Relation Name Status Comments Cousin Maternal Grandmother Other Paternal great uncle Alive Paternal Grandfather Social History Tobacco Use Types Packs/Day Years Used Date Smoking Tobacco: Former Cigarettes Q uit: 2017 Smokeless Tobacco: Never Alcohol Use Standard Drinks/Week Comments Not Currently 0 (1 standard drink = 0.6 oz pur e alcohol) PHQ-2 Answer Date Recorded Patient Health Questionnaire-2 Score 0 07/02/2024 Comments No Sex and Gender Information Value Date Recorded Sex Assigned at Not on file Legal Sex Female 10:42 AM CDT Gender Identity Not on file Sexual Orientation Not on file Last Filed Vital Signs Vital Sign Reading Time Taken Comments Blood Pressure 116/70 07/07/2024 7:44 AM PAPER TWISTER TENDER Pulse 86 07/07/2024 7:44 AM PAPER TWISTER TENDER Temperature 36.7 C (98.1 F) 07/07/2024 7:44 AM PAPER TWISTER TENDER Respiratory Rate 18 05/21/2019 2:05 PM CDT Oxygen Saturation 98% 07/07/2024 7:44 AM PAPER TWISTER TENDER Inhaled Oxygen Concentration - - Weight 81.6 kg (180 lb) 07/07/2024 7:44 AM PAPER TWISTER TENDER Height 162.6 cm (5' 4 ) 07/02/2024 11:45 AM PAPER TWISTER TENDER Body Mass Index 30.9 07/02/2024 11:45 AM PAPER TWISTER TENDER Plan of Treatment Health Maintenance Due Date Last Done Comments PAP SMEAR 1997 HIV SCREENING 2012 HEPATITIS C SCREENING 04/20/2015 DTAP/TDAP/TD VACCINES (1 - Tdap) 2016 HEPATITIS B VACCINE (1 of 3 - 19+ 3-dose series) 2016 COVID-19 VACCINE (2 - season) 2024 05/03/2021 DEPRESSION SCREENING 08/13/2024 07/02/2024 INFLUENZA VACCINE (Season Ended) 2025 06/19/2023, 05/16/2019, 05/13/2019, Additional history exists ZOSTER VACCINE (1 of 2) 2047 HIB VACCINE Aged Out No longer eligi ble based on patient's age to complete this topic HPV VACCINE Aged Out No longer eligi ble based on patient's age to complete this topic MENINGOCOCCAL (Group B) VACCINE SHARED DECISION-MAKING Aged Out No longer eligible based on patient's age to complete this topic MENINGOCOCCAL GROUPS A/C/Y/W VACCINE Aged Out No longer eligible based on patient's age to complete this topic PNEUMOCOCCAL VACCINE Aged Out No long er eligible based on patient's age to complete this topic Insurance [facility] SELF PAY NO INSURANCE Member Subscriber Plan / Payer (Ef fective for All Dates) Name:Jessica Aliza Member ID:Not on file Relation to Subscriber:Not on file Name:YOLANDA LOPEZ Subscriber ID:Not on file Address: [facility] [place] [address] Payer ID:Not on file Group ID:Not on file Type:Self Pay Address: [facility] SELF PAY NO INSURANCE Member Subscriber Plan / Payer (Ef fective for All Dates) Name:Yolanda Lopez Member ID:Not on file Relation to Subscriber:Not on file Name:YOLANDA LOPEZ Subscriber ID:Not on file Address: [address] [place] [id number] Payer ID:Not on file Group ID:Not on file Type:Self Pay Address: [place] [employer] Advance Directives * Full Code (Latest Code Status on File) Date Activated Date Inactivated Comments 05/21/2019 2:31 PM 05/21/2019 6:54 PM Care Teams White Mixing Operator Relationship Specialty Start Date End Date Antoine Mathew MD [address] [place] [address] [address], [address] [place] [address] PCP - General 04/23/19
--- OUTSIDE RECORDS SUMMARY | 2024-12-21 20:17 | XMS_ITS | Clinical Summary ---
Author Organization [facility] Address [address] [place] [address] Phone Care Team Providers Care Low Pressure Boiler Tender Name Role Phone Provider, None Primary Care Provider Unavailabl e Allergies No known active allergies Medications No known medications Active Problems No known active problems Social History Tobacco Use Types Packs/Day Years Used Date Smoking Tobacco: Former Smokeless Tobacco: Never Alcohol Use Standard Drinks/Week Comments Yes 0 (1 standard drink = 0.6 oz pur e alcohol) occasion Comments No Sex and Gender Information Value Date Recorded Sex Assigned at Not on file Legal Sex Female 9:12 PM CDT Gender Identity Not on file Sexual Orientation Not on file Last Filed Vital Signs Vital Sign Reading Time Taken Comments Blood Pressure 114/69 03/06/2020 3:49 AM CDT Pulse 89 03/06/2020 3:49 AM CDT Temperature 36.7 C (98.1 F) 03/06/2020 3:49 AM CDT Respiratory Rate 16 03/06/2020 3:49 AM CDT Oxygen Saturation 98% 03/05/2020 5:20 PM CDT Inhaled Oxygen Concentration - - Weight 65.8 kg (145 lb) 03/05/2020 5:20 PM CDT Height 162.6 cm (5' 4 ) 03/05/2020 5:20 PM CDT Body Mass Index 24.89 03/05/2020 5:20 PM CDT Plan of Treatment Health Maintenance Due Date Last Done Comments Hepatitis C Virus (HCV) Screening 1997 Influenza Immunization (#1) 2024 05/13/2019 SARS-COV-2 Immunization ( season) 2024 05/03/2021 Respiratory Syncytial Virus (RSV) Immunization (Adult) (1 - 1-dose 75+ series) 2072 Hepatitis B Immunization Completed 998, 1997, 1997 DTaP/Tdap/Td Immunization Discontinued 2018, 03/07/2019, 03/04/2002, Additional history exists TdaP Immunization Completed 04/17/2019, 03/07/2019 Meningococcal Immunization (ACWY) Aged Out No longer eligible based on patient's age to complete this topic Pneumococcal Immunization Combined Aged Out No longer eligible based on patient's age to complete this topic Rotavirus Immunization Aged Out No lo nger eligible based on patient's age to complete this topic Insurance [facility] Care Teams Low Pressure Boiler Tender Relationship Specialty Start Date End Date Provider, None [place] PCP - General 03/05/20
--- OUTSIDE RECORDS SUMMARY | 2024-12-21 20:17 | XMS_ITS | Clinical Summary ---
Author Organization [facility] Address [address] [facility] [address] [place] [phone] Phone Care Team Providers Care Inlayer Name Role Phone Evonne Oleary PT Unavailable Unavailable Ian Danielle MD Primary Care Provider [phone] Allergies No known active allergies Medications ondansetron ODT (ZOFRAN-ODT) 4 mg disintegrating tablet Take 1 tablet (4 mg total) by mouth every 6 (six) hours as needed for vomiting or nausea 5 Active Active Problems Problem Noted Date Diagnosed Date Annual physical exam 06/19/2023 Assessment & Plan (06/19/2023 12:30 PM CUSTOMER DATA TECHNICIAN): Doing well. BMI: 31.8 (Obese) Routine labs ordered - reviewed recent lab. Will check lipid in 6 months Preventative Screening Due: Up-to-date Dietary and exercise recommendations given today. Recommend exercise at least 30 minutes moderate to vigorous exercise and some strength training most days of the week. (minimum 150 minutes weekly) Discussed MyPlate recommendations and increasing fruits and vegetables Vaccines due - COVID booster. Flu shot given today RTC annually for f/u Insomnia 05/09/2023 Assessment & Plan (06/19/2023 12:31 PM CUSTOMER DATA TECHNICIAN): Chronic and Ongoing. May be 2/2 ongoing depression. Continue Lexapro 15 mg nightly. Increase trazodone to 150 mg nightly Risks/benefits and alternatives discussed Reiterated sleep hygiene. Handout given at previous appointment Encouraged to seek counseling Follow-up 8 weeks Assessment & Plan (05/09/2023 10:25 AM CDT): Ongoing. Likely secondary to depression and anxiety. Lexapro increased to 15 mg nightly. Risks/benefits and alternatives discussed Increase trazodone to 50 mg nightly in 2 weeks if symptoms not improved. Risks/benefits and alternatives discussed Reiterated sleep hygiene. Handout given Seek counseling. Follow-up 6 weeks Attention deficit hyperactivity disorder (ADHD) 05/09/2023 Assessment & Plan (05/09/2023 10:26 AM CDT): Patient endorses both depressed mood, anxiousness and difficulty with concentrating. Symptoms were not well controlled with Wellbutrin except for concentration issues but noted extreme dry mouth. Wellbutrin was discontinued due to side effects. Given information for [facility] for eval and treatment Syncope and collapse 03/29/2023 Assessment & Plan (03/29/2023 5:58 PM CDT): Acute. With recurrent dizziness. Ortho static vitals stable in clinic. EKG NSR. Rate 70 bpm. Normal axis. CA interval 148 msec. QTc [address] elevations or depression. Routine labs ordered Refer to Cards for additional. (?POTS vs vasovagal syndrome) Continue to monitor symptoms. Go to ER immediately if symptom recurs F/u 6 weeks Otalgia, right ear 11/15/2022 Assessment & Plan (11/15/2022 4:26 PM CDT): Likely referred pain from lymphadenopathy. No acute findings on exam. Likely inflammatory in nature, rxd prednisone burst as directed. Call on Sunday with update on pain. Cervicalgia 11/15/2022 Assessment & Plan (11/15/2022 4:29 PM CDT): One anterior cervical node as noted above, no acute signs of infection. Will check CMP, CBC to r/o infection or organ dysfunction. Rxd prednisone burst as directed for inflammation, Tylenol as needed. call with update Sunday when you finish prednisone. Mixed anxiety and depressive disorder 11/15/2022 Assessment & Plan (08/22/2023 8:51 AM CUSTOMER DATA TECHNICIAN): Chronic and ongoing medication. PHQ-9 score 17 and devaughn 7 score 2. Severe depression -continue Lexapro 15 mg taper. -few tablets Ativan 0.5 mg available for p.r.n. use. Risks/benefits and alternatives discussed. Patient is aware that this provider does not prescribe benzos for chronic conditions -Establish with counselor. Contact information for [facility] given. Can also try [employer] -followup 3 months or sooner prn Assessment & Plan (06/19/2023 12:33 PM CUSTOMER DATA TECHNICIAN): Chronic and ongoing medication. PHQ-9 score 13 and devaughn 7 not completed patient endorses improvement in anxiety Moderate depression -continue Lexapro 15 mg taper. -few tablets Ativan 0.5 mg available for p.r.n. use. Risks/benefits and alternatives discussed. Patient is aware that this provider does not prescribe benzos for chronic conditions -Establish with counselor. Contact information for [facility] given. Can also try [employer] -followup 8 weeks for re-evaluation Assessment & Plan (05/09/2023 10:24 AM CDT): Chronic and ongoing off medication. PHQ-9 score 12 and devaughn 7 score 5. Moderate depression, mild anxiety -Increase Lexapro 15 mg taper. Risks/benefits and alternatives discussed -five tablets Ativan 0.5 mg given p.r.n. use. Risks/benefits and alternatives discussed. Patient is aware that this provider does not prescribe benzos for chronic conditions -Establish with counselor. Contact information for [facility] given. Can also try [employer] -followup 6 weeks for re-evaluation Assessment & Plan (03/29/2023 5:59 PM CDT): Chronic and ongoing off medication. PHQ-9 and devaughn 7 score is not performed. Patient endorses both depressed mood, anxiousness and difficulty with concentrating. Symptoms were not well controlled with Wellbutrin except for concentration issues. Endorses improvement with Lexapro in the past. Discontinued medication due to telehealth recommendation for trial of Wellbutrin to treat all 3 issues. -Restart Lexapro 10 mg taper. Risks/benefits and alternatives discussed -five tablets Ativan 0.5 mg given p.r.n. use. Risks/benefits and alternatives discussed. Patient is aware that this provider does not prescribe benzos for chronic conditions -consider establishing with counselor -followup 6 weeks for re-evaluation Assessment & Plan (11/15/2022 4:31 PM CDT): Mood stable on current dose of Wellbutrin 300mg. Will refill in office today. Encouraged counseling and relaxation techniques such as deep breathing/music therapy. Follow in 3 months, sooner if needed. Endometriosis determined by laparoscopy 08/30/19 Assessment & Plan (08/30/2022 2:04 PM CUSTOMER DATA TECHNICIAN): Recommend patient follow-up with Gynecology or establish with a new wrapper hand to discuss current treatment options for this chronic condition. Dr. Oneill and Dr. Weller contact information was given to patient. Patient states she will continue to do her own research at this time and may reach out in the near future Adjustment disorder with anxiety 05/03/2022 Assessment & Plan (06/14/2022 8:21 AM CDT): Chronic and improved. DEVAUGHN-7 score 3. Minimal. Chest discomfort resolved. - Continue escitalopram 10 mg taper daily. -list of counselors given to contacted reengage in therapy -Ativan 0.5mg daily prn panic attack only. Patient is aware that this provider only prescribes benzodiazepine for short-term use with acute anxiety. Will continue to monitor symptoms and adjust daily medication as needed -follow-up 3 months Assessment & Plan (05/03/2022 9:16 AM CDT): Acute. DEVAUGHN-7 score 19. Severe anxiety chest discomfort likely a combination of dieting and panic attack. Will monitor -start escitalopram 10 mg taper daily. Risks/benefits and alternatives discussed -list of counselors given to contacted reengage in therapy -Ativan 0.5mg daily prn panic attack only. Patient is aware that this provider only prescribes benzodiazepine for short-term use with acute anxiety. Will continue to monitor symptoms and adjust daily medication as needed -follow-up 6 weeks JENNIFER (obstructive sleep apnea) 05/02/2022 Assessment & Plan (05/02/2022 2:13 PM CDT): Referral placed to Sleep Medicine If positive for JENNIFER and unable to tolerate CPAP, please call for follow up to further discuss Tonsillectomy Localized swelling, mass and lump, neck 03/15/20 Assessment & Plan (05/02/2022 2:12 PM CDT): Reactive lymphadenopathy Discussed criteria for tonsillectomy and does not currently meet these criteria Call if symptoms return Referred otalgia discussed and Handout provided Assessment & Plan (04/14/2022 12:30 PM CDT): Ongoing. CT scan showed multiple enlarged lymph nodes and palantine tonsils. - ENT evaluation scheduled 04/01 - continue with ice to affected area. Ibuprofen 800 mg as needed for pain swelling - Consider repeat CT scan in 3-6 month to check for resolution if persistent symptoms Assessment & Plan (03/15/2022 4:32 PM CDT): Acute. Differential diagnosis: Soft tissue swelling vs mass vs goiter vs tonsillar abscess (less likely given duration and symptoms) - CT of neck with contrast to further eval - continue with ice to affected area. Ibuprofen 800 mg as needed for pain swelling - referred to ENT for evaluation given enlarged tonsils - patient given strict precautions to go to ER for evaluation if develops persistent fever temperatures > 100.5F, difficulty swallowing, voice change, or increased pain Heartburn 03/15/2022 Assessment & Plan (11/15/2022 4:24 PM CDT): Worsening despite PRN pepcid use. No acute findings on exam. Rxd pantoprazole as directed. Low acid diet. Assessment & Plan (04/14/2022 12:22 PM CDT): Ongoing & Mild. - Continue Avoid foods that trigger symptoms - Continue Pepcid 20mg BID prn. - Continue to monitor and f/u prn Assessment & Plan (03/15/2022 4:27 PM CDT): Mild. - Avoid foods that trigger symptoms - Pepcid 20mg BID prn. Risks/benefits and alternatives discussed - Continue to monitor and f/u prn Class 1 obesity without seri ous comorbidity with body mass index (BMI) of 31.0 to 31.9 in adult 03/15/2022 Assessment & Plan (04/14/2022 12:21 PM CDT): Patient will continue to work on diet/exercise. Fatigue 03/15/2022 Assessment & Plan (04/14/2022 12:32 PM CDT): Ongoing and nonspecific. Labs normal . Vitamin d levels low normal. - Will continue with vitamin D supplement - Continue to incorporating routine exercise to daily life and diet - will continue to monitor Assessment & Plan (03/15/2022 4:34 PM CDT): Ongoing and nonspecific. Differential diagnosis includes hypothyroidism vs vitamin-D deficiency vs anemia vs poor dietary/exercise/sleep routine - routine labs ordered - counseled on appropriate diet and incorporating routine exercise and to daily life - will re-evaluate at well check in 4 weeks Elevated blood pressure read ing in office without diagnosis of hypertension 05/21/2019 Overview (09/11/2024): Recent labs from 05/16/19: H/H/P: 10.4/31.8/325 CMP: AST: 17, ALT: 7, creatinine: 0.56, BUN: 7 24 hour urine protein: 264mg Heart murmur 05/19/2019 Overview (05/28/2023): Last Assessment & Plan: Pending evaluation with SIMONE, order placed per [facility]ology. Orthostatic hypotension 05/06/2019 Supervision of high-risk of young prim igravida 05/06/2019 Anxiety state 02/07/2019 Overview (09/11/2024): Tried zoloft for a few days, had some side effects and stopped Stable no meds now Reccommended counseling Contact dermatitis 02/24/2015 Overview (11/16/2016): Contact dermatitis Comments Yes Resolved Problems Problem Noted Date Diagnosed Date Resolved Date Left ear pain 08/30/2022 08/30/2022 Encounters Date Type Department Care Team Description 10/10/2024 9:15 AM CUSTOMER DATA TECHNICIAN Office Visit [facility] at [address] [address] Alexandra Lund PA Influenza A (Primary Dx) from Last 3 Months Immunizations Immunization Administration Dates Next Due DTP / HiB 1997 DTaP 03/04/2002, 8,1997,09/03,1997 HPV, Quadrivalent 03/09/2010,02/02/2009,12/02/19 09 Hep B / HiB 1997,1997 Hep B, Adolescent or Pediatric 1997,1996,1997 HiB 07/23/1998 Hib (HbOC) 07/23/1998, 8,1997,06/22 IPV 03/04/2002,1997,1997 Influenza, Quadrivalent, Spl it, Preservative Free, Intramuscular 06/19/2023,05/16/2019 Influenza, Trivalent, IM (MDV) 05/25/2014,2012 Influenza, Unspecified 05/13/2019 MMR 03/04/2002,07/23/1998 Meningococcal MCV4P (Menactra) 04/28/2014 Meningococcal Polysaccharide (Menomune) 12/01/2008 OPV 03/04/2002, 8,1997,06/22 Rho (D) Immune Globulin 03/07/2019,11/15/2018 Tdap 04/17/2019,03/07/2019,12/01/2008 Surgical History Surgery Date Site/Laterality Comments ORAL SURGERY 11/12/2015 - 12/11/2015 Bilateral wisdom teeth removal Medical History Medical History Date Comments Anxiety Chlamydia contact, treated 06/2018 Gonorrhea 08/2018 Depression Family History Medical History Relation Name Comments Asthma Brother Heart disease Maternal Grandmother Heart disease Other Family history of heart problems; Heart disease Paternal Grandfather Relation Name Status Comments Brother Maternal Grandmother Other Paternal Grandfather Social History Tobacco Use Types Packs/Day Years Used Date Smoking Tobacco: Former Cigarettes Q uit: 08/2017 Smokeless Tobacco: Never Tobacco Cessation:Counseling Given: Yes Comments:Former smoker; almost 2 years smoke-free Alcohol Use Standard Drinks/Week Comments No 0 (1 standard drink = 0.6 oz pur e alcohol) AUDIT-C Answer Date Recorded Q1: How often do you have a drink containing alc ohol? 2-4 times a month 06/19/2023 Q2: How many drinks containi ng alcohol do you have on a typical day when you are drinking? 5 or 6 06/19/2023 Q3: How often do you have si x or more drinks on one occasion? Never 06/19/2023 PHQ-2 Answer Date Recorded PHQ-2 Total Score (If total score is 3 or more points, staff should administer the PHQ-9) 6 08/21/2023 Comments Yes Sex and Gender Information Value Date Recorded Sex Assigned at Not on file Legal Sex Female 9:50 AM CUSTOMER DATA TECHNICIAN Gender Identity Not on file Sexual Orientation Not on file Obstetrics History Para Term AB IAB SAB Ectopic Multiple Livin g Live Births 2 1 1 0 1 1 Date Outcome GA Total Labor Labor/2nd/3rd Weight Sex Type Anes PTL Ariana A1 A5 Name Clin 019 Term 40w 1d 2h 49m 1h 37m/1h 08m/0h 04m 3.247 kg (7 lb 2.5 oz) F Vag-S pont Epidu ral,L ocal N Livin g 8 9 GILLE JULIANO, GIRLM WENDY damon, Antoine parekh MD Complications:None Delivery Location:This Facil ity ([facility]) Current Last Filed Vital Signs Vital Sign Reading Time Taken Comments Blood Pressure 94/56 10/10/2024 9:26 AM CUSTOMER DATA TECHNICIAN Pulse 107 10/10/2024 9:26 AM CUSTOMER DATA TECHNICIAN Temperature 36.8 C (98.3 F) 10/10/2024 9:26 AM CUSTOMER DATA TECHNICIAN Respiratory Rate 17 10/10/2024 9:26 AM CUSTOMER DATA TECHNICIAN Oxygen Saturation 99% 10/10/2024 9:26 AM CUSTOMER DATA TECHNICIAN Inhaled Oxygen Concentration - - Weight 77.1 kg (170 lb) 10/10/2024 9:26 AM CUSTOMER DATA TECHNICIAN Height 162.6 cm (5' 4 ) 09/13/2024 6:40 PM CUSTOMER DATA TECHNICIAN Body Mass Index 29.18 09/13/2024 6:40 PM CUSTOMER DATA TECHNICIAN Plan of Treatment Health Maintenance Due Date Last Done Comments Hepatitis C Screening 1997 Varicella Vaccines (1 of 2 - 13+ 2-dose series) 2010 Cervical Cancer Screening 10/27/2023 10/26/2022 Covid-19 Vaccine ( - season) 2024 05/03/2021 Regular Well Visit/Exam 18-64 06/19/2024 06/19/2023 Depression Screening 08/21/2024 08/21/2023, 08/21/2023, 06/19/2023, Additional history exists Influenza Vaccine (Season Ended) 2025 06/19/2023, 05/16/2019, 05/13/2019, Additional history exists DTaP/Tdap/Td Vaccine (9 - Td or Tdap) 04/17/2029 04/17/2019, 03/07/2019, 12/01/2008, Additional history exists Hepatitis B Screening Completed 1997 , 1997, 1997, Additional history exists HPV Vaccines Completed 03/09/2010, 01/12, 12/01/2008 Pneumococcal vaccine <65 Aged Out No longer eligible based on patient's age to complete this topic Procedures Procedure Name Priority Date/Time Associated Diagnosis Comments POCT RAPID STREP Routine 10/10/2024 9:42 AM CUSTOMER DATA TECHNICIAN Influenza A POC INFLUENZA A/B, COVID-19 ANTIGEN Routine 10/10/2024 9:38 AM CUSTOMER DATA TECHNICIAN Influenza A PAP WITH REFLEX TO HIGH RISK HPV Routine 10/26/2022 1:02 PM CDT Endometriosis determined by laparoscopy Chronic pelvic pain in female Cervical cancer screening from Last 3 Months or Most Recently Relevant to Health Maintenance Results * POCT rapid strep A (10/10/2024 9:42 AM CUSTOMER DATA TECHNICIAN) Pathologist [facility] Rapid Strep A, POC Negative Negative Swab 10/10/2024 9:42 AM CUSTOMER DATA TECHNICIAN Alexandra RAMIREZ POINT OF CARE TEST ORDERABLES Final Result * (ABNORMAL) POC Influenza A/B, COVID-19 antigen (10/10/2024 9:38 AM CUSTOMER DATA TECHNICIAN) Pathologist [facility] Influenza A Ag, POC Positive(A) Negative [facility] Influenza B Ag, POC Negative Negative [facility] COVID-19 Ag POC Presumptive Negative Presumptive Negative, Invalid [facility] Nasal 10/10/2024 9:38 AM CUSTOMER DATA TECHNICIAN Alexandra RAMIREZ POINT OF CARE TEST ORDERABLES Final Result Performing Organization Address City/State/[facility] Co de Phone Number [address] [phone] * Pap with reflex to High Risk HPV (10/26/2022 1:02 PM CDT) [facility] CLINICAL INFORMATION: Eric Montero Comment: Routine exam PAP SMEAR LMP Eric Montero Comment:10/22/2022 Previous Pap Eric Montero Comment:NONE GIVEN Prev. Bx Eric Montero Comment:NONE GIVEN SOURCE: Eric Montero Comment:Cervix, Endocervix Pap, specimen adequacy Eric Montero Comment: Satisfactory for evaluation. Endocervical/transformation zone component present. HPV interp Eric Montero Comment:Negative for intraep ithelial lesion or malignancy. COMMENTS Eric Montero Comment: This Pap test has been evaluated with computer assisted technology. Scalp Treatment Specialist Leonardo Romero Comment: ABC, CT(ASCP) CT screening location: [place] [address] [place], [place] [address] Comment Eric Montero Comment: EXPLANATORY NOTE: The Pap is a screening test for cervical cancer. It is not a diagnostic test and is subject to false negative and false positive results. It is most reliable when a satisfactory sample, regularly obtained, is submitted with relevant clinical findings and history, and when the Pap result is evaluated along with historic and current clinical information. Thin prep 10/26/2022 1:02 PM CDT 10/27/2022 1:19 AM CDT Alisa Saunders MD LAB CYTOLOGY ORDERABLES Final Result [facility] [id number] [place] [address] from Last 3 Months or Most Recently Relevant to Health Maintenance Additional Health Concerns Infection Onset Date Last Indicated COVID: Recovered Comment:Added based on recent COVID infection. 09/23/2024 025 Insurance [email or web address] ACCESS CHOICE [place] Advance Directives For more information, please contact: [phone] * Full Code (Latest Code Status on File) Date Activated Date Inactivated Comments 06/03/2019 9:19 PM 06/05/2019 8:34 PM * Full Code Date Activated Date Inactivated Comments 06/03/2019 7:58 AM 06/03/2019 9:19 PM Full CPR i n case of cardiopulmonary arrest Care Teams Inlayer Relationship Specialty Start Date End Date Ian Danielle MD [address] [phone] PCP - General Obstetrics and Gynecology 10/10/24 Evonne Oleary, JARRED Physical Therapist Physical Therapy 11/30/22
--- OUTSIDE RECORDS SUMMARY | 2024-12-21 20:17 | XMS_ITS | Referral Summary ---
Author Organization [facility] Address [address] [facility] [address] [place] [address] Phone Care Team Providers Care Implementation Specialist Name Role Phone Evonne Oleary PT Unavailable Unavailable Ian Danielle MD Primary Care Provider [phone] Encounters Date Type Department Care Team Description 10/10/2024 9:15 AM ACCOUNTING SOFTWARE SPECIALIST Office Visit [facility] at [address] [place] [id number] Alexandra Lund PA Influenza A (Primary Dx) from Last 3 Months Allergies No known active allergies Medications ondansetron ODT (ZOFRAN-ODT) 4 mg disintegrating tablet Take 1 tablet (4 mg total) by mouth every 6 (six) hours as needed for vomiting or nausea 5 Active Active Problems Problem Noted Date Diagnosed Date Annual physical exam 06/19/2023 Assessment & Plan (06/19/2023 12:30 PM ACCOUNTING SOFTWARE SPECIALIST): Doing well. BMI: 31.8 (Obese) Routine labs [...] 05/09/2023 Assessment & Plan (06/19/2023 12:31 PM ACCOUNTING SOFTWARE SPECIALIST): Chronic and Ongoing. May be 2/2 ongoing [...] due to side effects. Given information for [facility] for eval and treatment Syncope and collapse 03/29/2023 Assessment & Plan (03/29/2023 5:58 PM CDT): Acute. With recurrent dizziness. Ortho static vitals stable in clinic. EKG NSR. Rate 70 bpm. Normal axis. DE interval 148 msec. QTc 413 msec. No [...] 11/15/2022 Assessment & Plan (08/22/2023 8:51 AM ACCOUNTING SOFTWARE SPECIALIST): Chronic and ongoing medication. PHQ-9 score 17 and alexandr 7 score 2. Severe depression -continue Lexapro 15 mg taper. -few tablets Ativan 0.5 mg available for p.r.n. use. Risks/benefits and alternatives discussed. Patient is aware that this provider does not prescribe benzos for chronic conditions -Establish with counselor. Contact information for [facility] given. Can also try Apieron -followup 3 months or sooner prn Assessment & Plan (06/19/2023 12:33 PM ACCOUNTING SOFTWARE SPECIALIST): Chronic and ongoing medication. PHQ-9 score 13 and alexandr 7 not completed patient endorses improvement in anxiety Moderate depression -continue Lexapro 15 mg taper. -few tablets Ativan 0.5 mg available for p.r.n. use. Risks/benefits and alternatives discussed. Patient is aware that this provider does not prescribe benzos for chronic conditions -Establish with counselor. Contact information for [facility] given. Can also try Apieron -followup 8 weeks for re-evaluation Assessment & Plan (05/09/2023 10:24 AM CDT): Chronic and ongoing off medication. PHQ-9 score 12 and alexandr 7 score 5. Moderate depression, mild anxiety -Increase Lexapro 15 mg taper. Risks/benefits and alternatives discussed -five tablets Ativan 0.5 mg given p.r.n. use. Risks/benefits and alternatives discussed. Patient is aware that this provider does not prescribe benzos for chronic conditions -Establish with counselor. Contact information for [facility] given. Can also try Apieron -followup 6 weeks for re-evaluation Assessment & Plan (03/29/2023 5:59 PM CDT): Chronic and ongoing off medication. PHQ-9 and alexandr 7 score is not performed. Patient endorses [...] 08/30/19 Assessment & Plan (08/30/2022 2:04 PM ACCOUNTING SOFTWARE SPECIALIST): Recommend patient follow-up with Gynecology or establish with a new cake puncher to discuss current treatment options for this chronic condition. Dr. Oneill and Dr. Weller contact information was given to patient. Patient states she will continue to do her own research at this time and may reach out in the near future Adjustment disorder with anxiety 05/03/2022 Assessment & Plan (06/14/2022 8:21 AM CDT): Chronic and improved. ALEXANDR-7 score 3. Minimal. Chest discomfort resolved. - [...] & Plan (05/03/2022 9:16 AM CDT): Acute. ALEXANDR-7 score 19. Severe anxiety chest discomfort likely [...] Resolved Date Left ear pain 08/30/2022 08/30/2022 Immunizations Immunization Administration Dates Next Due DTP [...] Rho (D) Immune Globulin 03/07/2019,11/15/2018 Tdap 04/17/2019,03/07/2019,12/01/2008 Social History Tobacco Use Types Packs/Day Years [...] on file Legal Sex Female 9:50 AM ACCOUNTING SOFTWARE SPECIALIST Gender Identity Not on file Sexual Orientation Not on file Last Filed Vital Signs Vital Sign Reading Time Taken Comments Blood Pressure 94/56 10/10/2024 9:26 AM ACCOUNTING SOFTWARE SPECIALIST Pulse 107 10/10/2024 9:26 AM ACCOUNTING SOFTWARE SPECIALIST Temperature 36.8 C (98.3 F) 10/10/2024 9:26 AM ACCOUNTING SOFTWARE SPECIALIST Respiratory Rate 17 10/10/2024 9:26 AM ACCOUNTING SOFTWARE SPECIALIST Oxygen Saturation 99% 10/10/2024 9:26 AM ACCOUNTING SOFTWARE SPECIALIST Inhaled Oxygen Concentration - - Weight 77.1 kg (170 lb) 10/10/2024 9:26 AM ACCOUNTING SOFTWARE SPECIALIST Height 162.6 cm (5' 4 ) 09/13/2024 6:40 PM ACCOUNTING SOFTWARE SPECIALIST Body Mass Index 29.18 09/13/2024 6:40 PM ACCOUNTING SOFTWARE SPECIALIST Plan of Treatment Not on file Procedures Procedure Name Priority Date/Time Associated Diagnosis Comments POCT RAPID STREP Routine 10/10/2024 9:42 AM ACCOUNTING SOFTWARE SPECIALIST Influenza A POC INFLUENZA A/B, COVID-19 ANTIGEN Routine 10/10/2024 9:38 AM ACCOUNTING SOFTWARE SPECIALIST Influenza A PAP WITH REFLEX TO HIGH RISK HPV Routine 10/26/2022 1:02 PM CDT Endometriosis determined by laparoscopy Chronic pelvic pain in female Cervical cancer screening from Last 3 Months or Most Recently Relevant to Health Maintenance Results * POCT rapid strep A (10/10/2024 9:42 AM ACCOUNTING SOFTWARE SPECIALIST) [facility] Rapid Strep A, POC Negative Negative Swab 10/10/2024 9:42 AM ACCOUNTING SOFTWARE SPECIALIST Alexandra RAMIREZ POINT OF CARE TEST ORDERABLES Final Result * (ABNORMAL) POC Influenza A/B, COVID-19 antigen (10/10/2024 9:38 AM ACCOUNTING SOFTWARE SPECIALIST) [facility] Influenza A Ag, POC Positive(A) Negative [facility] Influenza B Ag, POC Negative Negative [facility] COVID-19 Ag POC Presumptive Negative Presumptive Negative, Invalid [facility] Nasal 10/10/2024 9:38 AM ACCOUNTING SOFTWARE SPECIALIST Alexandra RAMIREZ POINT OF CARE TEST ORDERABLES Final Result Performing Organization Address City/State/[facility] Co de Phone Number [address] [phone] * Pap with reflex to High Risk HPV (10/26/2022 1:02 PM CDT) [facility] CLINICAL INFORMATION: Eric Montero Comment: Routine exam [...] has been evaluated with computer assisted technology. Glass Presser Leonardo Romero Comment: ABC, CT(ASCP) CT screening location: [place] [address] [place], [place] [address] Comment Eric Montero Comment: EXPLANATORY NOTE: The [...] Saunders MD LAB CYTOLOGY ORDERABLES Final Result [facility] [address] [place] [address] from Last 3 Months or Most Recently Relevant to Health Maintenance Additional Health Concerns Infection Onset Date Last Indicated COVID: Recovered Comment:Added based on recent COVID infection. 09/23/2024 025 Insurance [employer] CHO[employer] [place] CHOICE [place]F P[place] Advance Directives For more information, please contact: [phone] * Full Code (Latest Code Status on File) Date Activated Date Inactivated Comments 06/03/2019 9:19 PM 06/05/2019 8:34 PM * Full Code Date Activated Date Inactivated Comments 06/03/2019 7:58 AM 06/03/2019 9:19 PM Full CPR i n case of cardiopulmonary arrest Care Teams Implementation Specialist Relationship Specialty Start Date End Date Ian Danielle MD [address] [place], [place] [id number] PCP - General Obstetrics and Gynecology 10/10/24 Evonne Oleary, PT Physical Therapist Physical Therapy 11/30/22
[2024-12-21 20:31] VITALS: BP 117/71; PULSE 102
[2024-12-21 21:01] VITALS: BP 127/76; PULSE 104
[2024-12-21 21:10] LABS: Add Urine Microscopic? YES; Appearance Urine Clear (Clear); Bacteria Urine None Seen /hpf; Bilirubin Urine Negative (Negative); Blood Urine Negative (Negative); Color Urine Yellow (Yellow); Glucose Urine UA Negative (Negative); Ketones Urine 2+ mg/dL (Negative); Leukocyte Esterase Ur 2+ LEU/UL (Negative); Need Manual Microscopic Reviewed; Nitrate Urine Negative (Negative); Non Pathogenic Casts 0-2; Protein Urine Negative (Negative); RBC Urine 0-2 /hpf (0-2); Specific Grav Ur 1.016 (1.001-1.035); Squamous Epithelial Cell Urine Occasional /hpf (Few); pH Urine 5.5 (5.0-9.0)
[2024-12-21 22:30] VITALS: BMI 29.5
--- NOTE | 2024-12-21 22:30 | OBADM ---
This patient, Caryn Lopez, admitted to the OB room Labor/Delivery/Recovery 107 for observation. Patient/family oriented to hospital policies and general routines including ID bracelet, bed and alarms, visiting hours, pain management, procedures, bathroom and other care routines, personal items, smoking policy, room service/diet, and visiting hours. Patient/Family are encouraged to report perceived risks to care and to ask questions if they do not understand what they are told or what they should do.
--- NOTE | 2024-12-22 08:46 | PM.OBTRLD ---
OB - Triage/Final Diagnosis Visit Information Reason for evaluation: threatened labor and other (Dehydration) Comments/Additional reasons for admission: I have assessed the risk for this patient, Caryn Lopez, and determined that she would benefit from observation care. Evaluation Laboratory results: Laboratory Tests 12/21/24 20:56 Urine Color Yellow Urine Appearance Clear Urine pH 5.5 Ur Specific [place] 1.016 Urine Protein Negative Urine Glucose (UA) Negative Urine Ketones 2+ H Ur Blood (Man) Negative Urine Nitrate Negative Urine Bilirubin Negative Urine Urobilinogen 1.0 Add Ur Microanalysis Reviewed Leukocyte Esterase Rfl 2+ H Urine RBC 0-2 Urine WBC 11-20 H Ur Squamous Epith Cells Occasional Urine Bacteria None seen Urine Casts 0-2 Vital signs: Vital Signs - 24 hr 12/21/24 20:16 12/21/24 20:17 12/21/24 20:31 Pulse Rate 98 99 102 H Blood Pressure 136/68 125/66 117/71 12/21/24 21:01 Pulse Rate 104 H Blood Pressure 127/76
== END 2024-12-21 22:45 | disposition home or self-care (01) ==
PROVIDERS: Admitting Provider Obstetrics & Gynecology Gynecology; PCP Family Medicine; Visit Provider Obstetrics & Gynecology Gynecology
DX: O47.02 False labor before 37 completed weeks of gestation, second trimester (principal); O99.282 Endocrine, nutritional and metabolic diseases complicating pregnancy, second trimester; E86.0 Dehydration; Z3A.25 25 weeks gestation of pregnancy
CPT/HCPCS: 81001; 87086; G0378; G0379

== ENCOUNTER 2025-01-12 12:06 | Emergency (ER) | payer BC, SELFPAY ==
--- OUTSIDE RECORDS SUMMARY | 2025-01-12 12:10 | XMS_ITS | Clinical Summary ---
Author Organization [facility] Address [address] [place] [address] Phone Care Team Providers Care Metal Spraying Machine Operator Name Role Phone Provider, None Primary Care [...] 5:20 PM CDT Height 162.6 cm (5' 4) 03/05/2020 5:20 PM CDT Body Mass Index [...] patient's age to complete this topic Insurance [facility] Care Teams Metal Spraying Machine Operator Relationship Specialty Start Date End Date Provider, None [place] PCP - General 03/05/20
[2025-01-12 12:21] VITALS: BP 120/76; PULSE 94; RESP 18; TEMP 36.8; O2SAT 100
--- NOTE | 2025-01-12 12:31 | ECG_ITS ---
Test Date: 2025-01-12 12:36:36 Measurements Intervals [place] Rate: 99 P: -5 OR: 157 QRS: 11 QRSD: 87 T: 6 QT: 335 QTc: 430 Interpretive Statements SINUS RHYTHM CONSIDER INFERIOR INFARCT, AGE INDETERMINATE BASELINE ARTIFACT- II, III, AVL ABNORMAL ECG No previous ECG available for comparison Electronically Signed On 01-12-2025 15:08:51 CDT by Jethro Hylton D.O.
--- NOTE | 2025-01-12 12:31 | PC.NURSE ---
pt states she is 28 weeks , estimated due date 04/04/25. Pt states her OBGYN is Dr. Sohail Singh
[2025-01-12 12:32] VITALS: BP 104/76; PULSE 94; RESP 12; O2SAT 100
--- OUTSIDE RECORDS SUMMARY | 2025-01-12 13:27 | XMS_ITS | Clinical Summary ---
Author Organization [facility] Address [address] [place] [address] Phone Care Team Providers Care Correctional Case Records Supervisor Name Role Phone Provider, None Primary Care [...] patient's age to complete this topic Insurance [facility] Care Teams Correctional Case Records Supervisor Relationship Specialty Start Date End Date Provider, None [place] PCP - General 03/05/20
[2025-01-12] MEDS: SODIUM CHLORIDE 0.9% IV 1,000 ML 999 ML IV CONT (14:05)
[2025-01-12 14:12] LABS: Basophils Percent Auto 0.4 % (0.2-1.2); Eosinophils Absolute Auto 0.1 K/mm3 (0-0.3); Eosinophils Percent Auto 0.7 % (0-4.4); Hematocrit 33.2 % (37.0-47.0); Hemoglobin 10.8 g/dL (12.0-15.0); Immature Granulocyte Absolute 0.06 K/mm3 (0.00-0.031); Immature Granulocyte Percent A 0.7 % (0-0.5); Lymphocytes Absolute Auto 1.99 K/mm3 (0.9-3.2); Lymphocytes Percent Auto 24.8 % (18.3-44.2); Mean Corpuscular HGB Conc 32.5 g/dl (32-36); Mean Corpuscular Hemoglobin 29.3 pg (26-34); Monocytes Absolute Auto 0.6 K/mm3 (0.1-0.6); Monocytes Percent Auto 7.1 % (2.6-8.5); Neutrophils Absolute Auto 5.3 K/mm3 (1.3-6.7); Neutrophils Percent Auto 66.3 % (45.5-73.1); Platelet Count Result 304 k/mm3 (150-375); Red Blood Count 3.69 M/mm3 (4.2-5.4); Red Cell Distribution Width 14.1 % (11.5-14.5)
[2025-01-12 14:15] VITALS: BP 102/73; PULSE 84
[2025-01-12 14:16] VITALS: BP 110/77; BP 125/64; PULSE 102; PULSE 88
[2025-01-12 14:20] LABS: Add Urine Microscopic? YES; Appearance Urine Clear (Clear); Bacteria Urine 4+ /hpf; Bilirubin Urine Negative (Negative); Blood Urine Negative (Negative); Color Urine Yellow (Yellow); Glucose Urine UA Negative (Negative); Ketones Urine Negative (Negative); Leukocyte Esterase Ur 2+ LEU/UL (Negative); Nitrate Urine Negative (Negative); Non Pathogenic Casts 0-2; Protein Urine Negative (Negative); RBC Urine 0-2 /hpf (0-2); Specific Grav Ur 1.007 (1.001-1.035); Squamous Epithelial Cell Urine Few /hpf (Few); pH Urine 7.5 (5.0-9.0)
[2025-01-12 14:33] LABS: Alanine Aminotransferase 11 U/L (6-35); Albumin Level 3.8 g/dL (3.5-5.1); Alkaline Phosphatase 69 U/L (38-126); Anion Gap 9 mmol/L (4-12); Aspartate Amino Transferase 23 U/L (14-36); Bilirubin,Total 0.4 mg/dL (0.2-1.3); Blood Urea Nitrogen 7 mg/dL (7-17); Calcium 9.3 mg/dL (8.4-10.2); Carbon Dioxide 22 mmol/L (22-30); Chloride 105 mmol/L (98-107); Estimated CRCL calculation 145 ml/min; Estimated Glomerular Filt Rate > 60; Glucose 75 mg/dL (65-110); Sodium 136 mmol/L (137-145)
[2025-01-12 15:18] LABS: Thyroid Stimulating Hormone Reflex 0.467 uIU/mL (0.465-4.68)
[2025-01-12 16:01] VITALS: BP 106/61; PULSE 92; RESP 18; O2SAT 100
--- NOTE | 2025-01-12 16:51 | ED_ITS ---
HPI - General Adult General Chief complaint: Arrhythmia/Palpitations Stated complaint: Fast heart rate-28wks preg-sent by OB Time Seen by Provider: 01/12/25 12:28 History of Present Illness HPI narrative: Patient is a 29-year-old female who presents ER with racing of the heart. Began this morning felt lightheaded. Has since resolved. Referred here by her Ob. No chest pain or shortness of breath for me but reported chest pain for triage. She is feeling baby move. No leg swelling. No cough. Related Data Allergies Allergy/AdvReac Type Severity Reaction Status Date / Time No Known Allergies Allergy Verified 01/12/25 12:08 Review of Systems 2 Review of Systems: All systems reviewed & are unremarkable except as noted in HPI and below Constitutional: Constitutional: Reports no additional constitutional complaints ENT: Reports system reviewed and no additional complaints, except as documented Cardiovascular: Cardiovascular: Reports no additional cardiovascular complaints Respiratory: Respiratory: Reports no additional respiratory complaints Gastrointestinal: Gastrointestinal: Reports no additional gastrointestinal complaints PMFSH Past Medical History Medical History Amenorrhea Anxiety Cyst of ovary Depression Elbow fracture, left Endometriosis Surgical History Surgical History H/O laparoscopy ~05/04 History of dental surgery Family History Family History Father Alive and well Mother Alive and well Grandparent Heart disease Grandparent Hypertension Heart disease Sibling Asthma Social History Social History Smoking packs per day: 0.5 Smoking cigarettes per day: 10.0 Years smoked: 2 Smoking pack-years: 1.00 Smoking status: Former smoker Tobacco type: cigarettes Second hand tobacco smoke exposure: No Smoking end date: 08/13/18 Additional smoking assessment comments: Smoked for 1.5 years Alcohol intake: current Drinks per week: 4 Alcohol use details: 2 DRINKS PER MONTH Substance use: current Substance use type: marijuana Do You Feel Safe in your Home?: Yes Lack of Transportation: No Lack of Food: Never True Current Housing: I Have Housing Concerned About Future Housing: No Difficulty Paying Gas/Electric Bills: No Difficulty Paying for Meds: No Currently Unemployed: No Education: High School Diploma/GED Difficulty w/ Childcare or Family Care: No Living arrangements: with family Additional living arrangements comments: CHILD Occupation/Education: occupation Additional occupation/education comments: [employer] Gender identity (if verbalized by the patient): Female Sexual Orientation (if Verbalized by the Patient): Straight or Heterosexual Spiritual care concerns: No Exam 2 Narrative: GENERAL: Well-appearing, well-nourished, and in no acute distress. HEAD: Normocephalic, atraumatic. ENT: Mucous membranes moist. NECK: Supple. CHEST: Clear to auscultation. No respiratory distress. HEART: Regular rate and rhythm. Normal peripheral pulses. ABDOMEN: Soft, nontender, uterus palpated above the umbilicus. EXTREMITIES: Normal range of motion. No edema. SKIN: Warm, dry, no rash. NEURO: Alert and oriented x3. PSYCH: Normal mood and affect. Course Course Emergency Course: Discussed lab results. Appropriate for discharge. Will give oral antibiotic for UTI. Vital Signs Vital signs: Vital Signs Temperature 98.3 F 01/12/25 12:21 Pulse Rate 94 01/12/25 12:21 Respiratory Rate 18 01/12/25 12:21 Blood Pressure 120/76 01/12/25 12:21 Pulse Oximetry 100 01/12/25 12:21 Temperature 98.3 F 01/12/25 12:21 Pulse Rate 92 01/12/25 16:01 Respiratory Rate 18 01/12/25 16:01 Blood Pressure 106/61 01/12/25 16:01 Pulse Oximetry 100 01/12/25 16:01 Medical Decision Making Vital Signs Vital Signs: Vital Signs Temperature 98.3 F 01/12/25 12:21 Pulse Rate 94 01/12/25 12:21 Respiratory Rate 18 01/12/25 12:21 Blood Pressure 120/76 01/12/25 12:21 Pulse Oximetry 100 01/12/25 12:21 Temperature 98.3 F 01/12/25 12:21 Pulse Rate 92 01/12/25 16:01 Respiratory Rate 18 01/12/25 16:01 Blood Pressure 106/61 01/12/25 16:01 Pulse Oximetry 100 01/12/25 16:01 Lab Data 01/12/25 14:07 01/12/25 14:07 Labs: Lab Results 01/12/25 01/12/25 Range/Units 14:07 14:10 WBC 8.0 (4.5-10.0) K/mm3 RBC 3.69 L (4.2-5.4) M/mm3 Hgb 10.8 L (12.0-15.0) g/dL Hct 33.2 L (37.0-47.0) % MCV 90.0 (80-100) fl MCH 29.3 (26-34) pg MCHC 32.5 (32-36) g/dl RDW 14.1 (11.5-14.5) % Plt Count 304 (150-375) k/mm3 MPV 10.0 (7.4-10.4) fl Immature Gran % (Auto) 0.7 H (0-0.5) % Neut % (Auto) 66.3 (45.5-73.1) % Lymph % (Auto) 24.8 (18.3-44.2) % Darke % (Auto) 7.1 (2.6-8.5) % Eos % (Auto) 0.7 (0-4.4) % Baso % (Auto) 0.4 (0.2-1.2) % Lymph # (Auto) 1.99 (0.9-3.2) K/mm3 Darke # (Auto) 0.6 (0.1-0.6) K/mm3 Eos # (Auto) 0.1 (0-0.3) K/mm3 Baso # (Auto) 0.0 (0.0-0.1) K/mm3 Abs Immat Gran (auto) 0.06 H (0.00-0.031) K/mm3 Absolute Neuts (auto) 5.3 (1.3-6.7) K/mm3 Absolute Nucleated RBC 0.000 (0.0-0.012) K/mm3 Nucleated RBC % 0.0 (0.0-0.2) % Sodium 136 L (137-145) mmol/L Potassium 4.0 (3.4-5.0) mmol/L Chloride 105 (98-107) mmol/L Carbon Dioxide 22 (22-30) mmol/L Anion Gap 9 (4-12) mmol/L BUN 7 (7-17) mg/dL Creatinine 0.50 L (0.7-1.0) mg/dL Estim Creat Clear Calc 145 ml/min Estimated GFR > 60 (59 - ) Glucose 75 (65-110) mg/dL Calcium 9.3 (8.4-10.2) mg/dL Total Bilirubin 0.4 (0.2-1.3) mg/dL AST 23 (14-36) U/L ALT 11 (6-35) U/L Alkaline Phosphatase 69 (38-126) U/L Total Protein 7.0 (6.3-8.2) g/dL Albumin 3.8 (3.5-5.1) g/dL TSH (Reflex) 0.467 (0.465-4.68) uIU/mL Urine Color Yellow (Yellow) Urine Appearance Clear (Clear) Urine pH 7.5 (5.0-9.0) Ur Specific [place] 1.007 (1.001-1.035) Urine Protein Negative (Negative) mg/dL Urine Glucose (UA) Negative (Negative) mg/dL Urine Ketones Negative (Negative) mg/dL Ur Blood (Man) Negative (Negative) Urine Nitrate Negative (Negative) Urine Bilirubin Negative (Negative) Urine Urobilinogen 1.0 (<2.0) mg/dL Leukocyte Esterase Rfl 2+ H (Negative) NIDHI/UL Urine RBC 0-2 (0-2) /hpf Urine WBC 6-10 H (0-3) /hpf Ur Squamous Epith Cells Few (Few) /hpf Urine Bacteria 4+ H /hpf Urine Casts 0-2 ECG Data EKG #1: ECG completion date: 01/12/25 ECG completion time: 12:36 EKG Interpretation: normal rate (99), sinus rhythm, non-specific ST changes, normal QRS, normal QT and other Discharge Plan Discharge Clinical Impression: Palpitations, UTI (urinary tract infection) Patient Disposition: Home Condition: Stable Instructions: Antibiotic Form, Urinary Tract Infection in (ED) Additional Instructions: You should return to the emergency department if you develop severe nausea and vomiting and are unable to keep liquids down, if you develop severe back/flank or stomach pain, or if your symptoms are not clearly improving at home. Patient Language: Citizen Of [place] Prescriptions: New cephalexin 500 mg capsule 500 mg PO QID Qty: 28 0RF No Action acetaminophen 500 mg tablet 500 mg PO Q6H PRN (Reason: pain) Qty: 30 0RF Follow-up/Referrals: Ian Danielle MD [Physician] - 1 Week PHYSICIAN,TRAFFIC CONTROLLER CABLE [Primary Care Provider] -
== END 2025-01-12 17:39 | disposition home or self-care (01) ==
PROVIDERS: Emergency Provider Emergency Medicine
DX: N39.0 Urinary tract infection, site not specified (principal); R00.2 Palpitations; F41.9 Anxiety disorder, unspecified; F32.A Depression, unspecified
CPT/HCPCS: 36415; 80053; 81001; 84443; 85025; 87086; 87181; 93005; 96360; 99284; J7030

== ENCOUNTER 2025-02-14 23:42 | Observation (INO) | payer BC, SELFPAY ==
--- OUTSIDE RECORDS SUMMARY | 2025-02-14 23:46 | XMS_ITS | Clinical Summary ---
Author Organization [facility] Address [address] [place] [address] Phone Care Team Providers Care Drupal Php Developer Name Role Phone Provider, None Primary Care [...] Comments Hepatitis C Virus (HCV) Screening 1997 Human Papillomavirus (HPV) Immunization (1 - 3-dose series) 2012 SARS-COV-2 Immunization ( season) 2024 05/03/2021 Influenza Immunization (Season Ended) 2025 05/13/2019 Respiratory Syncytial Virus (RSV) Immunization (Adult) (1 [...] patient's age to complete this topic [place] [address] [place] [address] [facility] Care Teams Drupal Php Developer Relationship Specialty Start Date End Date Provider, None [place] PCP - General 03/05/20
[2025-02-14 23:54] VITALS: BP 116/78; PULSE 97
[2025-02-15] VITALS: BP 115/74; PULSE 87
[2025-02-15 00:13] VITALS: BMI 30.6
--- NOTE | 2025-02-15 00:13 | OBADM ---
This patient, Caryn Lopez, admitted to the OB room Labor/Delivery/Recovery 106 for observation. Patient/family oriented to hospital policies and general routines including ID bracelet, bed and alarms, visiting hours, pain management, procedures, bathroom and other care routines, personal items, smoking policy, room service/diet, and visiting hours. Patient/Family are encouraged to report perceived risks to care and to ask questions if they do not understand what they are told or what they should do.
[2025-02-15 00:15] VITALS: BP 116/76; PULSE 106; TEMP 36.8
[2025-02-15 00:28] LABS: Add Urine Microscopic? YES; Appearance Urine Clear (Clear); Glucose Urine UA Negative (Negative); Leukocyte Esterase Ur Trace LEU/UL (Negative); Need Manual Microscopic Reviewed; Nitrate Urine Negative (Negative); Non Pathogenic Casts 0-2; Specific Grav Ur 1.002 (1.001-1.035)
[2025-02-15 00:30] VITALS: BP 114/66; PULSE 87
[2025-02-15 00:45] VITALS: BP 107/62; PULSE 98
--- NOTE | 2025-02-15 01:00 | PC.NURSE ---
Pt discharged home undelivered in stable condition per order from Dr. Singh. Discharge instructions explained and given to pt. Pt stated understanding, all questions and concerns answered. Pt ambulated out of department with all belongings, S.O @ pt side.
--- NOTE | 2025-02-17 07:51 | P.PNOB_ITS ---
OB - Triage/Final Diagnosis Visit Information Reason for evaluation: threatened labor Comments/Additional reasons for admission: I have assessed the risk for this patient, Caryn Lopez, and determined that she would benefit from observation care. Evaluation Laboratory results: Laboratory Tests 02/15/25 00:01 Urine Color Yellow Urine Appearance Clear Urine pH 7.0 Ur Specific [place] 1.002 Urine Protein Negative Urine Glucose (UA) Negative Urine Ketones Negative Ur Blood (Man) Negative Urine Nitrate Negative Urine Bilirubin Negative Urine Urobilinogen 0.2 Add Ur Microanalysis Reviewed Leukocyte Esterase Rfl Trace H Urine RBC 0-2 Urine WBC 0-5 Ur Squamous Epith Cells None seen Urine Bacteria Rare Urine Casts 0-2
== END 2025-02-15 01:00 | disposition home or self-care (01) ==
PROVIDERS: Admitting Provider Obstetrics & Gynecology; Visit Provider Obstetrics & Gynecology Gynecology
DX: O47.03 False labor before 37 completed weeks of gestation, third trimester (principal); Z3A.33 33 weeks gestation of pregnancy
CPT/HCPCS: 81001; G0378; G0379

== ENCOUNTER 2025-03-30 11:45 | Inpatient (IN) | payer BC, SELFPAY ==
[2025-03-30] VITALS (113 sets, daily range): BP systolic 58–215; BP diastolic 24–197; PULSE 76–235; TEMP 36.9–37.1; O2SAT 82–100; BMI 31.3
--- NOTE | 2025-03-30 06:39 | P.HP_ITS ---
H&P: HPI History of Present Illness Date/Time: 03/30/25 06:39 Chief Complaint: Induction of labor at term Narrative: This is a 29-year-old 5 para 1031 whose last menstrual period was 07/04/2024, EDC is 04/04/2025, presents at 39 weeks gestation for induction of labor. She is negative for group B strep received RhoGAM at 28 weeks. Her has been uncomplicated with a negative diabetic screen as well Review of Systems Review of Systems: All systems reviewed & are unremarkable except as noted in HPI and below Constitutional: Constitutional: Reports no additional constitutional complaints ENT: Reports system reviewed and no additional complaints, except as documented Cardiovascular: Cardiovascular: Reports no additional cardiovascular complaints Respiratory: Respiratory: Reports no additional respiratory complaints Gastrointestinal: Gastrointestinal: Reports no additional gastrointestinal complaints [facility] Past Medical History Medical History Cyst of ovary Endometriosis Amenorrhea Depression Anxiety Elbow fracture, left Surgical History Surgical History H/O laparoscopy ~05/04 History of dental surgery Family History Family History Father Alive and well Mother Alive and well Grandparent Heart disease Grandparent Heart disease Hypertension Sibling Asthma Grandparent Diabetes mellitus Social History Social History Smoking packs per day: 0.5 Smoking cigarettes per day: 10.0 Years smoked: 2 Smoking pack-years: 1.00 Smoking status: Former smoker Tobacco type: cigarettes Second hand tobacco smoke exposure: No Smoking end date: 08/13/18 Additional smoking assessment comments: Smoked for 1.5 years Alcohol intake: current Drinks per week: 4 Alcohol use details: 2 DRINKS PER MONTH Substance use: never Substance use type: marijuana Do You Feel Safe in your Home?: Yes Lack of Transportation: No Lack of Food: Never True Current Housing: I Have Housing Concerned About Future Housing: No Difficulty Paying Gas/Electric Bills: No Difficulty Paying for Meds: No Currently Unemployed: No Education: High School Diploma/GED Difficulty w/ Childcare or Family Care: No Living arrangements: with family Additional living arrangements comments: CHILD Occupation/Education: occupation Additional occupation/education comments: [employer] Gender identity (if verbalized by the patient): Female Sexual Orientation (if Verbalized by the Patient): Straight or Heterosexual Spiritual care concerns: No Meds Home Medications and Allergies Home Medications ?Medication ?Instructions ?Recorded ?Confirmed ?Type acetaminophen 500 mg tablet 500 mg PO Q6H PRN pain #30 tabs 07/26/23 03/06/25 Rx vit no.95-ferrous 1 tablet PO DAILY 03/06/25 03/06/25 History fumarate 28 mg-folic acid 800 mcg tablet () Allergies Allergy/AdvReac Type Severity Reaction Status Date / Time No Known Allergies Allergy Verified 03/06/25 12:51 Exam Const: General: cooperative, healthy appearing and comfortable Nutritional Appearance: average body habitus Orientation/consciousness: oriented to person, oriented to place and oriented to time HENMT: Head: normal to inspection Resp: Effort & Inspection: normal respiratory effort Cardio: Rate: regular rate Rhythm: regular rhythm Heart sounds: S1 normal heart sound present and S2 normal heart sound present GI: Inspection: normal to inspection (Gravid soft uterus) : External Female Exam: normal external appearance Speculum Exam - Vagina: normal appearance of the vagina Speculum Exam - Cervix: normal appearance of the cervix (Cervix 375%/-1) Assessment and Plan Assessment and plan (1) Term : Code(s): Z34.90 - Encounter for supervision of normal , unspecified, unspecified trimester Status: Acute Plan Proceed with medical induction of labor. Spontaneous vaginal delivery expected. She is an epidural candidate
[2025-03-30] MEDS: LACTATED RINGERS 1,000 ML 125 ML IV CONT (12:28)
[2025-03-30] MEDS: OXYTOCIN 30 UNITS/NS 500 ML 30 UNITS/500 ML BAG IV CONT (12:31)
--- NOTE | 2025-03-30 12:33 | LDADM ---
This patient, Caryn Lopez, was admitted to Labor/Delivery/Recovery 106 on 03/30/25 at 11:45. Plans for labor, pain management and were discussed with patient. Patient/family oriented to hospital policies and general routines including ID bracelet, bed and alarms, visiting hours, pain management, procedures, bathroom and other care routines, personal items, smoking policy, room service/diet and guest tray routines, infant security routines, and visiting hours. Patient/Family are encouraged to report perceived risks to care and to ask questions if they do not understand what they are told or what they should do. See OBIX for further documentation.
[2025-03-30 12:48] LABS: Hematocrit 31.8 % (37.0-47.0); Hemoglobin 10.3 g/dL (12.0-15.0); Immature Granulocyte Percent A 0.5 % (0-0.5); Lymphocytes Absolute Auto 2.14 K/mm3 (0.9-3.2); Mean Corpuscular HGB Conc 32.4 g/dl (32-36); Mean Corpuscular Hemoglobin 28.8 pg (26-34); Mean Corpuscular Volume 88.8 fl (80-100); Nucleated Red Blood Cells Absolute Auto 0.000 K/mm3 (0.0-0.012); Nucleated Red Blood Cells Perc 0.0 % (0.0-0.2); Platelet Count Result 313 k/mm3 (150-375); Red Blood Count 3.58 M/mm3 (4.2-5.4); White Blood Count 8.1 K/mm3 (4.5-10.0)
[2025-03-30] MEDS: FAMOTIDINE 20 MG/2 ML VIAL IV PUSH (13:00)
--- OUTSIDE RECORDS SUMMARY | 2025-03-30 13:01 | XMS_ITS | Clinical Summary ---
Author Organization [facility] Address [address] [place] [address] Phone Care Team Providers Care Deckhand Clam Dredge Name Role Phone Provider, None Primary Care [...] Comments Hepatitis C Virus (HCV) Screening 1997 SARS-COV-2 Immunization ( season) 2024 05/03/2021 Human Papillomavirus (HPV) Immunization (1 - 3-dose SCDM series) 2024 Influenza Immunization (#1) 2025 05/13/2019 Respiratory Syncytial Virus (RSV) Immunization [...] patient's age to complete this topic Insurance [facility] Care Teams Deckhand Clam Dredge Relationship Specialty Start Date End Date Provider, None [place] PCP - General 03/05/20
[2025-03-30 13:10] LABS: Syphilis IgG/IgM Antibody Non-Reactive (Nonreactive)
--- NOTE | 2025-03-30 16:17 | PM.OBPNLAB ---
Pain Control Date/time seen: 03/30/25 16:17 Pain control: tolerating well Comments: Cervix unchanged will place IUPC and begin Pitocin
[2025-03-30] MEDS: fentaNYL CITRATE INJ (*CRX) 100 MCG/2 ML VIAL 50 MCG IV PUSH (16:35)
--- NOTE | 2025-03-30 18:02 | PM.OBPNLAB ---
Pain Control Date/time seen: 03/30/25 18:02 Pain control: tolerating well Pelvic Exam Dilation (cm): 3 Effacement (%): 75 station: -2 Amniotic membrane status: Leaking
[2025-03-30] MEDS: fentaNYL CITRATE INJ (*CRX) 100 MCG/2 ML VIAL IV PUSH ×2 (18:14→19:43)
--- NOTE | 2025-03-30 18:16 | WPDANESEPP ---
Anes - Eval Pre Procedure Procedure: labor pain management Date/Time: 03/30/25 18:16 Surgeon: jasmina singh Preop Diagnosis: pain during labor Pre Op Diagnosis: EIOL Patient Data Age: 29 Gender: F Height: 1.63 m Weight: 82.7 kg Last Vital Signs Temp 98.4 F 03/30/25 16:38 Pulse 83 03/30/25 18:00 BP 114/74 03/30/25 18:00 Pulse Ox 100 03/30/25 15:33 Allergies Allergy/AdvReac Type Severity Reaction Status Date / Time No Known Allergies Allergy Verified 03/06/25 12:51 Home Medications ?Medication ?Instructions ?Recorded ?Confirmed ?Type acetaminophen 500 mg tablet 500 mg PO Q6H PRN pain #30 tabs 07/26/23 03/06/25 Rx vit no.95-ferrous 1 tablet PO DAILY 03/06/25 03/30/25 History fumarate 28 mg-folic acid 800 mcg tablet () Laboratory Tests 03/30/25 12:18 WBC 8.1 K/mm3 (4.5-10.0) RBC 3.58 L M/mm3 (4.2-5.4) Hgb 10.3 L g/dL (12.0-15.0) Hct 31.8 L % (37.0-47.0) MCV 88.8 fl (80-100) MCH 28.8 pg (26-34) MCHC 32.4 g/dl (32-36) RDW 13.8 % (11.5-14.5) Plt Count 313 k/mm3 (150-375) MPV 10.5 H fl (7.4-10.4) Immature Gran % (Auto) 0.5 % (0-0.5) Neut % (Auto) 63.7 % (45.5-73.1) Lymph % (Auto) 26.5 % (18.3-44.2) [place] % (Auto) 7.8 % (2.6-8.5) Eos % (Auto) 1.0 % (0-4.4) Baso % (Auto) 0.5 % (0.2-1.2) Lymph # (Auto) 2.14 K/mm3 (0.9-3.2) [place] # (Auto) 0.6 K/mm3 (0.1-0.6) Eos # (Auto) 0.1 K/mm3 (0-0.3) Baso # (Auto) 0.0 K/mm3 (0.0-0.1) Abs Immat Gran (auto) 0.04 H K/mm3 (0.00-0.031) Absolute Neuts (auto) 5.1 K/mm3 (1.3-6.7) Absolute Nucleated RBC 0.000 K/mm3 (0.0-0.012) Nucleated RBC % 0.0 % (0.0-0.2) Syphilis IgG/IgM Ab Non-reactive (Nonreactive) Blood Type O Negative Antibody Screen Negative ECG: SR 99 Patient hx anesthesia problems: none Family hx anesthesia problems: none Results Review: All pre-operative results and documents have been reviewed as part of the pre-operative evaluation. [facility] Past Medical History Medical History Cyst of ovary Endometriosis Amenorrhea Depression Anxiety Elbow fracture, left Surgical History Surgical History H/O laparoscopy ~05/04 History of dental surgery Family History Family History Father Alive and well Mother Alive and well Grandparent Heart disease Grandparent Heart disease Hypertension Sibling Asthma Grandparent Diabetes mellitus Social History Social History Smoking packs per day: 0.5 Smoking cigarettes per day: 10.0 Years smoked: 2 Smoking pack-years: 1.00 Smoking status: Former smoker Tobacco type: cigarettes Second hand tobacco smoke exposure: Yes Smoking end date: 08/13/18 Additional smoking assessment comments: Smoked for 1.5 years Alcohol intake: current Drinks per week: 4 Alcohol use details: 2 DRINKS PER MONTH Substance use: never Substance use type: marijuana Do You Feel Safe in your Home?: Yes Lack of Transportation: No Lack of Food: Never True Current Housing: I Have Housing Concerned About Future Housing: No Difficulty Paying Gas/Electric Bills: No Difficulty Paying for Meds: No Currently Unemployed: No Education: High School Diploma/GED Difficulty w/ Childcare or Family Care: No Living arrangements: with family Additional living arrangements comments: CHILD Occupation/Education: occupation Additional occupation/education comments: [employer] Gender identity (if verbalized by the patient): Female Sexual Orientation (if Verbalized by the Patient): Straight or Heterosexual Spiritual care concerns: No Exam Day of Procedure 03/30/25 18:16
--- NOTE | 2025-03-30 22:50 | PM.OBPRVD ---
OB - Vaginal Delivery Note Procedure Delivery date: 03/30/25 Events: Elective Induction of Labor Induction method: AROM Delivery augmentation: Pitocin Delivery monitor: External FHT and Internal Uterine Route of delivery: Episiotomy description: None Laceration Description: Perineal - 1st Degree Delivery repair: vicryl Specimen: No Quantitative Blood Loss (ml): 62 Anesthesia type: Epidural Disposition: Floor Complications: No immediate complications Narrative: Patient was admitted for induction of labor a noon on 03/30/2025 artificial rupture membranes performed risks unremarkable 1st stage of labor to completely dilated epidural anesthesia placed which is complete she pushed delivered head spontaneously in the JAKE position. Anterior posterior shoulder delivered spontaneously. Cord clamped and cut and passed off the table given Apgars of 9 [id number] 9 [id number]. Cord blood was drawn. Placenta delivered intact spontaneously. Twenty to Pitocin placed in the IV to help firm the uterus. A small 1st degree perineal laceration was seen and a [id number] 3-[address] QBL 62cc. All sponge, needle, instrument counts were correct. There were no immediate complications. Mom and baby doing fine at the time this dictation [place] Baby Date of : 03/30/25 Time of : 22:39 Gestational Age by Date: 39 gender: Male presentation: vertex position: Right Occiput Anterior Placenta delivery description: Spontaneous Cord Vessel Description: 3 Vessels score one minute: 9 score five minutes: 9
--- NOTE | 2025-03-30 22:52 | P.DS_ITS ---
DS: Admitting Diagnosis Discharge Date 04/01/2025 Admitting Diagnosis Term DS: Discharge Diagnosis Discharge Diagnosis (1) Term : Code(s): Z34.90 - Encounter for supervision of normal , unspecified, unspecified trimester Status: Acute DS: Summary Hospital Course Reason for hospitalization: Patient was admitted on 03/30 for induction of labor and underwent spontaneous vaginal delivery was unremarkable under anesthesia in the form of epidural Hospital Course: Patient's hospital course unremarkable. She remained afebrile. She was up, voiding without difficulty, eating regular diet, ambulating, and generally without complaints. Time Spent with Patient Time attestation: Total time spent providing and/or coordinating discharge services: Exam Const: General: cooperative, healthy appearing and comfortable Nutritional Appearance: average body habitus Orientation/consciousness: oriented to person, oriented to place and oriented to time HENMT: Head: normal to inspection Resp: Effort & Inspection: normal respiratory effort Cardio: Rate: regular rate Rhythm: regular rhythm Heart sounds: S1 normal heart sound present and S2 normal heart sound present GI: Inspection: normal to inspection (Gravid soft uterus) : External Female Exam: normal external appearance Speculum Exam - Vagina: normal appearance of the vagina Speculum Exam - Cervix: normal appearance of the cervix (Cervix 375%/-1) DS: Data Data Completed and Pending Labs on day of discharge: Labs from last 24 hours 03/30/25 12:18 WBC 8.1 RBC 3.58 L Hgb 10.3 L Hct 31.8 L MCV 88.8 MCH 28.8 MCHC 32.4 RDW 13.8 Plt Count 313 MPV 10.5 H Immature Gran % (Auto) 0.5 Neut % (Auto) 63.7 Lymph % (Auto) 26.5 [place] % (Auto) 7.8 Eos % (Auto) 1.0 Baso % (Auto) 0.5 Lymph # (Auto) 2.14 [place] # (Auto) 0.6 Eos # (Auto) 0.1 Baso # (Auto) 0.0 Abs Immat Gran (auto) 0.04 H Absolute Neuts (auto) 5.1 Absolute Nucleated RBC 0.000 Nucleated RBC % 0.0 Syphilis IgG/IgM Ab Non-reactive Blood Type O Negative Antibody Screen Negative Discharge Plan Discharge Attending physician on discharge: Ian Danielle Discharging Clinician: Ian Danielle Patient Disposition: Home Activity: december shower, no straining and pelvic rest Diet: heart healthy Wound Care Instructions: follow printed instructions Patient Instructions: Antibiotic Form Patient Language: Cook Islander Stand Alone Forms: General Discharge Information Follow-up/Referrals: Ian Danielle MD [Physician, [facility]] Discharge Medications: Continued acetaminophen 500 mg tablet 500 mg PO Q6H PRN (Reason: pain) Qty: 30 0RF PNV no.95-ferrous fumarate-FA [] 28 mg iron- 800 mcg tablet 1 tablet PO DAILY Date of admission: 03/30/25 11:45 Primary Care Provider: PHYSICIAN,COMMUNICATIONS OPERATOR Admitting Provider: Ian Danielle Attending physician on admission: Ian Danielle Condition: Stable
[2025-03-31] VITALS (10 sets, daily range): BP systolic 88–141; BP diastolic 52–98; PULSE 60–102; RESP 16–18; TEMP 36.4–37.1; O2SAT 97–100
[2025-03-31] MEDS: IBUPROFEN 600 MG TABLET PO ×4 (02:04→22:24)
[2025-03-31] MEDS: ACETAMINOPHEN 325 MG TABLET 650 MG PO ×3 (05:03→19:41)
[2025-03-31 05:46] LABS: Hematocrit 30.5 % (37.0-47.0); Hemoglobin 10.0 g/dL (12.0-15.0)
--- NOTE | 2025-03-31 07:13 | P.PNOB_ITS ---
OB - PN: Subj Subjective Date/time seen: 03/31/25 07:13 Patient comments: no complaints, pain well controlled and tolerating diet [place] baby status: doing well OB - PN: Obj Data Labs 03/31/25 05:10 Labs: Laboratory Results - last 24 hr 03/30/25 03/31/25 12:18 05:10 WBC 8.1 RBC 3.58 L Hgb 10.3 L 10.0 L Hct 31.8 L 30.5 L MCV 88.8 MCH 28.8 MCHC 32.4 RDW 13.8 Plt Count 313 MPV 10.5 H Immature Gran % (Auto) 0.5 Neut % (Auto) 63.7 Lymph % (Auto) 26.5 [place] % (Auto) 7.8 Eos % (Auto) 1.0 Baso % (Auto) 0.5 Lymph # (Auto) 2.14 [place] # (Auto) 0.6 Eos # (Auto) 0.1 Baso # (Auto) 0.0 Abs Immat Gran (auto) 0.04 H Absolute Neuts (auto) 5.1 Absolute Nucleated RBC 0.000 Nucleated RBC % 0.0 Syphilis IgG/IgM Ab Non-reactive Blood Type O Negative O Negative Antibody Screen Negative Negative Screen Negative Baby's Blood Type O pos Baby's [place] Negative Doses of RhIg Required 1 OB - PN A/P Assessment and Plan (1) Term : Code(s): Z34.90 - Encounter for supervision of normal , unspecified, unspecified trimester Status: Acute Plan routine care Time Spent With Patient Time: Total time spent is greater than 50% in coordination of care (as documented) at patient's floor/unit and/or counseling patient: Review of Systems 2 Review of Systems: All systems reviewed & are unremarkable except as noted in HPI and below Constitutional: Constitutional: Reports no additional constitutional complaints ENT: Reports system reviewed and no additional complaints, except as documented Cardiovascular: Cardiovascular: Reports no additional cardiovascular complaints Respiratory: Respiratory: Reports no additional respiratory complaints Gastrointestinal: Gastrointestinal: Reports no additional gastrointestinal complaints Exam 2 Const: General: cooperative, healthy appearing and comfortable Nutritional Appearance: average body habitus Orientation/consciousness: oriented to person, oriented to place and oriented to time HENMT: Head: normal to inspection Resp: Effort & Inspection: normal respiratory effort Cardio: Rate: regular rate Rhythm: regular rhythm Heart sounds: S1 normal heart sound present and S2 normal heart sound present GI: Inspection: normal to inspection (Gravid soft uterus) : External Female Exam: normal external appearance Speculum Exam - Vagina: normal appearance of the vagina Speculum Exam - Cervix: normal appearance of the cervix (Cervix 375%/-1)
[2025-03-31] MEDS: DOCUSATE SODIUM 100 MG CAPSULE PO (09:02)
[2025-03-31] MEDS: MULTIVIT/MIN/PREN/FOL AC/IRON TABLET 1 TAB PO (09:02)
--- NOTE | 2025-03-31 10:35 | PC.NURSE ---
Attempted to meet with patient to discuss needs. Patient bottle fed formula at the last feeding time. Patient is sleeping so father of baby is instructed to let mom know to call our for any needed assistance. RN name on white board.
--- NOTE | 2025-03-31 12:45 | WPDANLDPN2 ---
Anes-Prog Note L&D Date/Time: 03/31/25 12:45 Comfortable throughout: labor and delivery Neuraxial method: epidural Epidural/Spinal procedure site: clean & non-tender Neuro status: Neuro function grossly intact. Cardiovascular status: normal Respiratory status: normal Airway patency: baseline Mental status: baseline Post-Op hydration status: normal Vital Signs: Last Vital Signs Temp 37.1 C 03/31/25 07:20 Pulse 60 03/31/25 07:20 Resp 16 03/31/25 07:20 BP 88/52 L 03/31/25 07:20 Pulse Ox 99 03/31/25 07:20 O2 Del Method Room Air 03/31/25 07:30 Pain score (VAS): 2 I/O: Intake & Output 03/30/25 03/31/25 03/31/25 23:59 07:59 15:59 Output Total 75 Balance -75 Post-procedural complaints: none Patient feedback: Patient satisfied with anesthetic care.
--- NOTE | 2025-03-31 16:00 | PC.NURSE ---
Met with patient to discuss . She has decided to exclusively bottle feed due to 's recessed chin and her mental health history with her first baby ([id number]). Patient is encouraged to call out if there are any other needs from the team. Primary RN updated.
[2025-03-31] MEDS: RHO(D) IMMUNE GLOBULIN 300 MCG/2 ML SYRINGE IM (17:32)
[2025-03-31] MEDS: WITCH HAZEL 40 PADS 1 PAD (18:32)
[2025-04-01] MEDS: ACETAMINOPHEN 325 MG TABLET 650 MG PO (05:15)
[2025-04-01] MEDS: IBUPROFEN 600 MG TABLET PO ×2 (05:15→12:07)
--- NOTE | 2025-04-01 06:48 | P.PNOB_ITS ---
OB - PN: Subj Subjective Date/time seen: 04/01/25 06:48 Patient comments: no complaints, pain well controlled and tolerating diet [place] baby status: doing well OB - PN: Obj Data Labs 03/31/25 05:10 Labs: Laboratory Results - last 24 hr 03/31/25 05:10 Blood Type O Negative Antibody Screen Negative Screen Negative Baby's Blood Type O pos Baby's [place] Negative Doses of RhIg Required 1 OB - PN A/P Assessment and Plan (1) Term : Code(s): Z34.90 - Encounter for supervision of normal , unspecified, unspecified trimester Status: Acute Plan home Time Spent With Patient Time: Total time spent is greater than 50% in coordination of care (as documented) at patient's floor/unit and/or counseling patient: Review of Systems 2 Review of Systems: All systems reviewed & are unremarkable except as noted in HPI and below Constitutional: Constitutional: Reports no additional constitutional complaints ENT: Reports system reviewed and no additional complaints, except as documented Cardiovascular: Cardiovascular: Reports no additional cardiovascular complaints Respiratory: Respiratory: Reports no additional respiratory complaints Gastrointestinal: Gastrointestinal: Reports no additional gastrointestinal complaints Exam 2 Const: General: cooperative, healthy appearing and comfortable Nutritional Appearance: average body habitus Orientation/consciousness: oriented to person, oriented to place and oriented to time HENMT: Head: normal to inspection Resp: Effort & Inspection: normal respiratory effort Cardio: Rate: regular rate Rhythm: regular rhythm Heart sounds: S1 normal heart sound present and S2 normal heart sound present GI: Inspection: normal to inspection (Gravid soft uterus) : External Female Exam: normal external appearance Speculum Exam - Vagina: normal appearance of the vagina Speculum Exam - Cervix: normal appearance of the cervix (Cervix 375%/-1)
[2025-04-01 08:40] VITALS: BP 113/77; PULSE 75; RESP 16; TEMP 37.2; O2SAT 98
== END 2025-04-01 15:26 | disposition home or self-care (01) | DRG 807 ==
LOC: ANHLDR 22:54 → ANHOB2 03-31 01:24
PROVIDERS: Admitting Provider Obstetrics & Gynecology; Visit Provider Obstetrics & Gynecology
DX: O70.0 First degree perineal laceration during delivery (principal); Z37.0 Single live birth; Z3A.39 39 weeks gestation of pregnancy
CPT/HCPCS: 36415; 85014; 85018; 85025; 85461; 86593; 86850; 86900; 86901; 90384; A9270; J2590; J2790; J2795; J3010; J7120

== ENCOUNTER 2025-04-17 02:13 | Day surgery (SDC) | payer BC, SELFPAY ==
--- NOTE | 2025-04-15 12:38 | PM.IMHP ---
H&P: HPI History of Present Illness Date/Time: 04/15/25 12:38 Chief Complaint: Retained placenta Narrative: 29-year-old multiparous patient 2 weeks out PET elevated temperature irregular bleeding. Ultrasound shows what appears to be placental debris and fluid in the uterus. She was started on antibiotics orally and risks and benefits of this procedure reviewed in full Review of Systems Review of Systems: All systems reviewed & are unremarkable except as noted in HPI and below Constitutional: Constitutional: Reports no additional constitutional complaints ENT: Reports system reviewed and no additional complaints, except as documented Cardiovascular: Cardiovascular: Reports no additional cardiovascular complaints Respiratory: Respiratory: Reports no additional respiratory complaints Gastrointestinal: Gastrointestinal: Reports no additional gastrointestinal complaints [facility] Past Medical History Medical History Cyst of ovary Endometriosis Amenorrhea Depression Anxiety Elbow fracture, left Surgical History Surgical History H/O laparoscopy ~05/04 History of dental surgery Family History Family History Father Alive and well Mother Alive and well Grandparent Heart disease Grandparent Heart disease Hypertension Sibling Asthma Grandparent Diabetes mellitus Social History Social History Smoking packs per day: 0.5 Smoking cigarettes per day: 10.0 Years smoked: 2 Smoking pack-years: 1.00 Smoking status: Former smoker Tobacco type: cigarettes Second hand tobacco smoke exposure: Yes Smoking end date: 08/13/18 Additional smoking assessment comments: Smoked for 1.5 years Alcohol intake: current Drinks per week: 4 Alcohol use details: 2 DRINKS PER MONTH Substance use: never Substance use type: marijuana Do You Feel Safe in your Home?: Yes Lack of Transportation: No Lack of Food: Never True Current Housing: I Have Housing Concerned About Future Housing: No Difficulty Paying Gas/Electric Bills: No Difficulty Paying for Meds: No Currently Unemployed: No Education: High School Diploma/GED Difficulty w/ Childcare or Family Care: No Living arrangements: with family Additional living arrangements comments: CHILD Occupation/Education: occupation Additional occupation/education comments: [employer] Gender identity (if verbalized by the patient): Female Sexual Orientation (if Verbalized by the Patient): Straight or Heterosexual Spiritual care concerns: No Meds Home Medications and Allergies Home Medications ?Medication ?Instructions ?Recorded ?Confirmed ?Type acetaminophen 500 mg tablet 500 mg PO Q6H PRN pain #30 tabs 07/26/23 03/06/25 Rx vit no.95-ferrous 1 tablet PO DAILY 03/06/25 03/30/25 History fumarate 28 mg-folic acid 800 mcg tablet () Allergies Allergy/AdvReac Type Severity Reaction Status Date / Time No Known Allergies Allergy Verified 03/06/25 12:51 Exam Const: General: cooperative, healthy appearing and comfortable Nutritional Appearance: average body habitus Orientation/consciousness: oriented to person, oriented to place and oriented to time HENMT: Head: normal to inspection Resp: Effort & Inspection: normal respiratory effort Cardio: Rate: regular rate Rhythm: regular rhythm Heart sounds: S1 normal heart sound present and S2 normal heart sound present GI: Inspection: normal to inspection : External Female Exam: normal external appearance Speculum Exam - Vagina: normal appearance of the vagina Speculum Exam - Cervix: normal appearance of the cervix (Blood seen from the cervical loss) Bimanual exam- vagina & uterus: enlarged and Uterine tenderness Bimanual Exam- Adnexa, other: normal adnexae Assessment and Plan Assessment and plan (1) Retained placenta: Code(s): O73.0 - Retained placenta without hemorrhage Status: Acute Plan Proceed with suction dilatation and curettage
[2025-04-16 10:23] VITALS: BMI 28.3
--- NOTE | 2025-04-16 10:31 | PC.NURSE ---
Report to the Outpatient Waiting Room, entrance under the green pavilion located off [facility], at time _1000_ on date _[id number]_. Planned Procedure Time: _1200_.? Time changes happen often and if your time is changed the preop area will call you the afternoon before. - You and your visitor will be asked to self-screen and do not enter if you have any COVID symptoms. Please call surgeon if you need to reschedule. - A mask is optional within the hospital at this time. Patients may have clear liquids (water, carbonated beverages, clear teas, apple juice) until 3 hours prior to surgery with a maximum of 20 ounces. - No food from midnight until time of surgery and no smoking, or chewing tobacco (or any form of nicotine). No chewing gum, candy or mints. Take only the following medications with a SIP of water on the morning of surgery: __Cephalexin____ DO NOT STOP ANY OF YOUR OTHER PRESCRIPTION MEDICATIONS PRIOR TO SURGERY EXCEPT THE FOLLOWING Hold all vitamins and supplements for 3 days per anesthesiologist. stop now. Medications to discontinue per physician Use Acetaminophen for pain. Ibuprofen only if OK's with Dr Sohail Singh. Date to take last dose Please no make-up, nail yoruba, hairspray, perfume, deodorant, or body powder the day of surgery.? No jewelry (including any body piercings) or valuables the day of surgery, leave them at home.? Please take a shower or bath the night before, or the morning of, surgery with an antibacterial soap.? Wear comfortable, loose fitting clothing.? - Jewelry must be removed prior to entering the operating room.? Rings and piercings that are not removed may be cut off. - The hospital will not accept responsibility for valuables.? - Please leave all valuables, including medications, at home the day of surgery. If you are going home after surgery, a licensed medical driver must drive you home.? - NO public transportation without another adult if you receive anesthesia. - We recommend that an adult stay with you for 24 hours following discharge. - We also recommend that you do not drive, make important decision, drink alcoholic beverages, or take any drugs that were not prescribed by your health care provider for at least 24 hours after your discharge time. Follow any additional instructions given to you from your surgeon. Telephone instructions given to __Mary___and asked if any additional questions and then verbalized understanding. Patient advised to call surgeon office or pre surgery nurse liaison [phone] if any additional questions.
--- OUTSIDE RECORDS SUMMARY | 2025-04-17 02:16 | XMS_ITS | Clinical Summary ---
Author Organization [facility] Address [address] [place] [address] Phone Care Team Providers Care Sap Analyst Name Role Phone Provider, None Primary Care [...] series) 2024 Influenza Immunization (#1) 2025 05/13/2019 SARS-COV-2 Immunization (2 - 2025- season) 2025 05/03/2021 Respiratory Syncytial Virus (RSV) Immunization (Adult) [...] patient's age to complete this topic Insurance [facility] Care Teams Sap Analyst Relationship Specialty Start Date End Date Provider, None [place] PCP - General 03/05/20
--- OUTSIDE RECORDS SUMMARY | 2025-04-17 02:16 | XMS_ITS | Clinical Summary ---
Author Organization [facility] Address [address] [place] [address] Care Team Providers Care Solar Photovoltaic Systems Engineer Name Role Phone Antoine Mathew MD Primary Care Provider [phone] Source Comments [facility],non-owned Affiliates and Associated Physician Practices is amultiple site organization consisting of ambulatory clinics and hospital sitesin [place], [place], [place] and [place]. This disclosure is being madepursuant to the Care Everywhere program and may not contain all information available regarding this patient. Last updated 18.[facility] Allergies No known active allergies Medications * [...] surveillance for preeclampsia Sent to [facility] at [facility] today for persistent headache without relief and worsening scotomata Report called to triage at [facility], Adri MONROEbill distributor murmur 05/19/2019 Assessment & Plan (05/21/2019 11:39 AM CDT): Pending evaluation with SIMONE, order placed per [facility] cardiology. Syncope 05/19/2019 Assessment & Plan (05/21/2019 11:27 AM CDT): Caryn was seen by cardiology @ [facility] and notes reflect a benign exam. Flow murmur diagnosed. Sent with order for echo to screen for cardiomyopathy, prefers to do in [place]. Follow up @ [facility] cardiology 4 weeks. Need for influenza vaccination [...] Comments Blood Pressure 116/70 07/07/2024 7:44 AM COMMERCIAL SEWING INSTRUCTOR Pulse 86 07/07/2024 7:44 AM COMMERCIAL SEWING INSTRUCTOR Temperature 36.7 C (98.1 F) 07/07/2024 7:44 AM COMMERCIAL SEWING INSTRUCTOR Respiratory Rate 18 05/21/2019 2:05 PM CDT Oxygen Saturation 98% 07/07/2024 7:44 AM COMMERCIAL SEWING INSTRUCTOR Inhaled Oxygen Concentration - - Weight 81.6 kg (180 lb) 07/07/2024 7:44 AM COMMERCIAL SEWING INSTRUCTOR Height 162.6 cm (5' 4) 07/02/2024 11:45 AM COMMERCIAL SEWING INSTRUCTOR Body Mass Index 30.9 07/02/2024 11:45 AM COMMERCIAL SEWING INSTRUCTOR Plan of Treatment Health Maintenance Due Date Last Done Comments HIV SCREENING 2012 HEPATITIS C SCREENING 04/20/2015 DTAP/TDAP/TD VACCINES (1 - Tdap) 2016 HEPATITIS B VACCINE (1 of 3 - 19+ 3-dose series) 2016 PAP SMEAR 2018 COVID-19 VACCINE (2 - season) 2024 05/03/2021 HPV VACCINE (1 - 3-dose SCDM series) 2024 DEPRESSION SCREENING 08/13/2024 07/02/2024 INFLUENZA VACCINE (#1) 2025 3, 05/16/2019, 05/13/2019, Additional history exists ZOSTER VACCINE [...] age to complete this topic Insurance [facility] SELF PAY NO INSURANCE Member Subscriber Plan / Payer (Ef fective for All Dates) Name:Jessica Aliza Member ID:Not on file Relation to Subscriber:Not on file Name:CARYN LOPEZ Subscriber ID:Not on file Address: [address] [place] [address] Payer ID:Not on file Group ID:Not on file Type:Self Pay Address: [facility] SELF PAY NO INSURANCE Member Subscriber Plan / Payer (Ef fective for All Dates) Name:Caryn Lopez Member ID:Not on file Relation to Subscriber:Not on file Name:CARYN LOPEZ Subscriber ID:Not on file Address: [address] [place] [id number] Payer ID:Not on file Group ID:Not on file Type:Self Pay Address: [place], [place] [employer] Advance Directives * Full Code (Latest Code Status on File) Date Activated Date Inactivated Comments 05/21/2019 2:31 PM 05/21/2019 6:54 PM Care Teams Solar Photovoltaic Systems Engineer Relationship Specialty Start Date End Date Antoine Mathew MD [address] [place] [address] [address], [address] [place] [address] PCP - General 04/23/19
--- OUTSIDE RECORDS SUMMARY | 2025-04-17 02:16 | XMS_ITS | Clinical Summary ---
Author Organization [facility] Address [address] [place] [id number] Phone Care Team Providers Care Machine Grainer Name Role Phone Evonne Oleary PT Unavailable Unavailable Ian Danielle MD Primary Care Provider [phone] Allergies No known active allergies Medications ondansetron ODT (ZOFRAN-ODT) 4 mg disintegrating tablet Take 1 tablet (4 mg total) by mouth every 6 (six) hours as needed for vomiting or nausea 5 Active Active Problems Problem Noted Date Diagnosed Date Annual physical exam 06/19/2023 Assessment & Plan (06/19/2023 12:30 PM MOLD FINISHER): Doing well. BMI: 31.8 (Obese) Routine labs [...] 05/09/2023 Assessment & Plan (06/19/2023 12:31 PM MOLD FINISHER): Chronic and Ongoing. May be 2/2 ongoing [...] due to side effects. Given information for [facility] for eval and treatment Syncope and collapse 03/29/2023 Assessment & Plan (03/29/2023 5:58 PM CDT): Acute. With recurrent dizziness. Ortho static vitals stable in clinic. EKG NSR. Rate 70 bpm. Normal axis. WV interval 148 msec. QTc 413 msec. No [...] 11/15/2022 Assessment & Plan (08/22/2023 8:51 AM MOLD FINISHER): Chronic and ongoing medication. PHQ-9 score 17 and devaughn 7 score 2. Severe depression -continue Lexapro 15 mg taper. -few tablets Ativan 0.5 mg available for p.r.n. use. Risks/benefits and alternatives discussed. Patient is aware that this provider does not prescribe benzos for chronic conditions -Establish with counselor. Contact information for [facility] given. Can also try Atieva -followup 3 months or sooner prn Assessment & Plan (06/19/2023 12:33 PM MOLD FINISHER): Chronic and ongoing medication. PHQ-9 score 13 and devaughn 7 not completed patient endorses improvement in anxiety Moderate depression -continue Lexapro 15 mg taper. -few tablets Ativan 0.5 mg available for p.r.n. use. Risks/benefits and alternatives discussed. Patient is aware that this provider does not prescribe benzos for chronic conditions -Establish with counselor. Contact information for [facility] given. Can also try Atieva -followup 8 weeks for re-evaluation Assessment & [...] conditions -Establish with counselor. Contact information for [facility] given. Can also try Atieva -followup 6 weeks for re-evaluation Assessment & [...] 08/30/19 Assessment & Plan (08/30/2022 2:04 PM MOLD FINISHER): Recommend patient follow-up with Gynecology or establish with a new attacher to discuss current treatment options for this [...] on file Legal Sex Female 9:50 AM MOLD FINISHER Gender Identity Not on file Sexual Orientation [...] damon, Antoine parekh MD Complications:None Delivery Location:This [facility] Current Last Filed Vital Signs Vital Sign Reading Time Taken Comments Blood Pressure 94/56 10/10/2024 9:26 AM MOLD FINISHER Pulse 107 10/10/2024 9:26 AM MOLD FINISHER Temperature 36.8 C (98.3 F) 10/10/2024 9:26 AM MOLD FINISHER Respiratory Rate 17 10/10/2024 9:26 AM MOLD FINISHER Oxygen Saturation 99% 10/10/2024 9:26 AM MOLD FINISHER Inhaled Oxygen Concentration - - Weight 77.1 kg (170 lb) 10/10/2024 9:26 AM MOLD FINISHER Height 162.6 cm (5' 4) 09/13/2024 6:40 PM MOLD FINISHER Body Mass Index 29.18 09/13/2024 6:40 PM MOLD FINISHER Plan of Treatment Health Maintenance Due Date Last Done Comments Hepatitis C Screening 1997 Varicella Vaccines (1 of 2 - 13+ 2-dose series) 2010 Cervical Cancer Screening 10/27/2023 10/26/2022 Covid-19 Vaccine (2 - 2023- season) 2024 05/03/2021 Regular Well Visit/Exam 18-64 06/19/2024 06/19/2023 Depression Screening 08/21/2024 08/21/2023, 08/21/2023, 06/19/2023, Additional history exists Influenza Vaccine (#1) 2025 , 05/16/2019, 05/13/2019, Additional history exists DTaP/Tdap/Td Vaccine (9 - Td or Tdap) 04/17/2029 04/17/2019, 03/07/2019, 12/01/2008, Additional history exists Hepatitis B Screening Completed 1997 , 1997, 1997, Additional history exists HPV Vaccines Completed 03/09/2010, 01/12, 12/01/2008 Pneumococcal vaccine <65 Aged Out No longer eligible based on patient's age to complete this topic Procedures Procedure Name Priority Date/Time Associated Diagnosis Comments PAP WITH REFLEX TO HIGH RISK HPV Routine 10/26/2022 1:02 PM CDT Endometriosis determined by laparoscopy Chronic pelvic pain in female Cervical cancer screening from Last 3 Months or Most Recently Relevant to Health Maintenance Results * Pap with reflex to High Risk HPV (10/26/2022 1:02 PM CDT) CLINICAL INFORMATION: Eric Montero Comment: Routine exam [...] has been evaluated with computer assisted technology. Machine Marker Leonardo [facility] Comment: ABC, CT(ASCP) CT screening location: [place] [address] [address] [place] [address] [address] Comment Eric Montero Comment: EXPLANATORY NOTE: The [...] PM CDT 10/27/2022 1:19 AM CDT Alisa Saudners MD LAB CYTOLOGY ORDERABLES Final Result [facility] [address] [address] [place] [address] from Last 3 Months or Most Recently Relevant to Health Maintenance Insurance [employer] A/S ACCESS CHOICE AN[employer] ACCESS CHOICE BL CHOICE PRF PPO [place] Advance Directives For more information, please contact: [phone] * Full Code (Latest Code Status on File) Date Activated Date Inactivated Comments 06/03/2019 9:19 PM 06/05/2019 8:34 PM * Full Code Date Activated Date Inactivated Comments 06/03/2019 7:58 AM 06/03/2019 9:19 PM Full CPR i n case of cardiopulmonary arrest Care Teams Machine Grainer Relationship Specialty Start Date End Date Ian Danielle MD [address] [facility] [address] [place] [address] PCP - General Obstetrics and Gynecology 10/10/24 Evonne Oleary, PT Physical Therapist Physical Therapy 11/30/22
--- NOTE | 2025-04-17 05:30 | WPDHPUPDATE1 ---
History and Physical Update Update Date/Time: 04/17/25 05:30 History and Physical has been reviewed, including an updated exam of the patient. There are NO changes in the patient's condition. Risks, benefits, and alternatives have been discussed and questions answered. Patient agrees to proceed with procedure.
[2025-04-17 10:20] VITALS: BP 106/74; PULSE 74; RESP 20; TEMP 36.3; O2SAT 99
[2025-04-17] MEDS: LACTATED RINGERS 1,000 ML 30 ML IV CONT (10:50)
[2025-04-17] MEDS: ACETAMINOPHEN 500 MG TABLET 1000 MG PO (10:50)
--- NOTE | 2025-04-17 11:57 | P.PNAN_ITS ---
Anes - Initial Pre Proc Eval Procedure: Operation Date: 04/17/25 12:00 Proposed Procedures p Suction Dilatation and Curettage - Ian Singh MD Date/Time: 04/17/25 11:57 Surgeon: Ian Singh MD Pre Op Diagnosis: post bleeding, retained placenta Patient Data Age: 29 Gender: F Height: 1.63 m Weight: 73.2 kg Last Vital Signs Temp 36.3 C L 04/17/25 10:20 Pulse 74 04/17/25 10:20 Resp 20 04/17/25 10:20 BP 106/74 04/17/25 10:20 Pulse Ox 99 04/17/25 10:20 O2 Del Method Room Air 04/17/25 10:20 Allergies Allergy/AdvReac Type Severity Reaction Status Date / Time No Known Allergies Allergy Verified 04/17/25 10:44 Home Medications ?Medication ?Instructions ?Recorded ?Confirmed ?Type acetaminophen 500 mg tablet 500 mg PO Q6H PRN pain #30 tabs 07/26/23 04/17/25 Rx vit no.95-ferrous 1 tablet PO DAILY 03/06/25 04/17/25 History fumarate 28 mg-folic acid 800 mcg tablet () cephalexin 500 mg capsule 500 mg PO Q12H 04/16/2501/04 History ibuprofen 200 mg tablet (Advil) 200 mg PO Q6H PRN pain 04/16/25 04/17/25 History hydrocodone 5 mg-acetaminophen 325 1 tablet PO Q4H PRN pain #20 tabs 04/17/25 Rx mg tablet Patient hx anesthesia problems: none Family hx anesthesia problems: none Results Review: All pre-operative results and documents have been reviewed as part of the pre- operative evaluation. [facility] Past Medical History Medical History Cyst of ovary Endometriosis Amenorrhea Depression Anxiety Elbow fracture, left Surgical History Surgical History H/O laparoscopy ~05/04 History of dental surgery Family History Family History Father Alive and well Mother Alive and well Grandparent Heart disease Grandparent Heart disease Hypertension Sibling Asthma Grandparent Diabetes mellitus Social History Social History Smoking packs per day: 0.5 Smoking cigarettes per day: 10.0 Years smoked: 2 Smoking pack-years: 1.00 Smoking status: Never smoker Tobacco type: cigarettes Second hand tobacco smoke exposure: Yes Smoking end date: 08/13/18 Additional smoking assessment comments: Smoked for 1.5 years Alcohol intake: current Drinks per week: 4 Alcohol use details: 2 DRINKS PER MONTH Substance use: never Substance use type: marijuana Do You Feel Safe in your Home?: Yes Lack of Transportation: No Lack of Food: Never True Current Housing: I Have Housing Concerned About Future Housing: No Difficulty Paying Gas/Electric Bills: No Difficulty Paying for Meds: No Currently Unemployed: No Education: High School Diploma/GED Difficulty w/ Childcare or Family Care: No Living arrangements: with family Additional living arrangements comments: CHILD Occupation/Education: occupation Additional occupation/education comments: [employer] Gender identity (if verbalized by the patient): Female Sexual Orientation (if Verbalized by the Patient): Straight or Heterosexual Spiritual care concerns: No Anes - Eval Final PreProcedure Day of Procedure 04/17/25 11:57 Patient weight: overweight Heart: regular rate and rhythm Lungs: clear to auscultation Airway: Mallampati scale class II Neurological: alert and oriented Last oral intake: >/= 8 hours ASA classification: II Emergent: no Anesthetic plan: proceed Anesthesia type and monitoring: general GIVS and standard monitoring Results Review: All pre-operative results and documents have been reviewed as part of the pre- operative evaluation. Informed Consent: The patient's anesthetic plan and its attendant risks and benefits were discussed with the patient/family/POA. Questions were solicited and answers provided to the satisfaction of the patient/family/POA.
[2025-04-17] MEDS: LIDOCAINE 1% LOCAL INJ 10 ML VIAL INFILTRATE (12:13)
--- NOTE | 2025-04-17 12:15 | S_PTH ---
PATIENT: Caryn Lopez LOC: [facility] U#:[id number] AGE/SX: 29/F ROOM: RE04/17/[address]: Ian Singh MD : 1995 BED: DIS: 04/17/2025 SPEC #: [id number] RECD: 04/17/25 13:23 STATUS: TOM REQ #: [id number] SUMA: 04/17/25 12:[address]: Ian Danielle DEPT: [facility] Surgical RECD BY: Sherry Meza ENTERED: 04/17/25 13:23 SP TYPE: Surgical OTHR DR: DRUG SAFETY PHYSICIAN PHYSICIAN Tissues: A - RET PLACENTA Procedures: Hematoxylin and Eosin Stain Gross and Microscopic Level 4
--- NOTE | 2025-04-17 12:19 | W.PM.PROC2 ---
Procedure Note - Detailed Date of Procedure 04/17/25 Pre-op Diagnosis post bleeding, retained placenta Post-op Diagnosis Same Procedure Performed Suction dilatation curettage Surgeon Ian Singh MD Anesthesia MAC and Local Indications This is 29 female with retained placenta temperature has been antibiotics for 2 days Findings Uterus sounded to 11cm. Tissue consistent with products of conception Description of Procedure Patient was prepped draped in the normal sterile fashion placed in dorsal lithotomy position. Under excellent IV sedation weighted speculum placed in posterior fornix vagina. Anterior lip of the cervix grasped with single-tooth tenaculum. 2.5cc 1% xylocaine anesthesia placed at 2, 4, 8, 10:00 a.m. of the cervix. Uterus sounded to 11cm. Serial dilatation with fragmented dilators performed followed by passes the 10. S e suction curette a moderate amount of tissue was removed when a good grating sound was heard the instruments withdrawn patient went recovery in satisfactory condition blood loss was estimated at25cc. All sponge, needle, instrument counts were correct. Patient went to recovery in satisfactory condition. All sponge, needle, instrument counts were were immediate complications Estimated Blood Loss 25 Drains No Packing No Pathology Yes Complications No immediate complications Condition Stable Disposition PACU
[2025-04-17 12:25] VITALS: BP 98/62; PULSE 63; RESP 14; O2SAT 97
[2025-04-17 12:55] VITALS: BP 96/60; PULSE 52; RESP 14; O2SAT 95
[2025-04-17 13:25] VITALS: BP 100/64; PULSE 52; RESP 14; O2SAT 98
[2025-04-17 13:55] VITALS: BP 97/60; PULSE 52; RESP 14
== END 2025-04-17 14:00 | disposition home or self-care (01) ==
PROVIDERS: Visit Provider Obstetrics & Gynecology
PROC: (CPT 59160; principal; 2025-04-17 12:00)
DX: O73.0 Retained placenta without hemorrhage (principal); Z87.891 Personal history of nicotine dependence
CPT/HCPCS: 59160; 88305; A9270; J2003; J2250; J2270; J2704; J7120